=== PATIENT | male | born 1950 ===

== ENCOUNTER 2018-01-23 19:04 | Inpatient (IN) | payer MEDICARE ==
[2018-01-23 19:18] VITALS: BMI 23.6
--- NOTE | 2018-01-23 19:46 | C.PDOC ---
History Of Present Illness Patient presents to the ER with a complaint of SOB and cough worsening over the last week. Patient is currently speaking in 4-5 word sentences. He still smokes a pack a day. Denies fever, chills, or chest pain. Time Seen by Provider: 01/23/18 19:33 Chief Complaint (Nursing): Shortness Of Breath History Per: Patient History/Exam Limitations: no limitations Onset/Duration Of Symptoms: Days (7) Current Symptoms Are (Timing): Worse Initiating Event: Other (Not known) Exacerbating Factor(s): Coughing Current Respiratory Medications: See Home Med List Severity: Moderate Pain Scale Rating Of: 4 Associated Symptoms: denies: Fever, Chills, Chest Pain Recent travel outside of the [place]: No Additional History Per: Family Past Medical History Reviewed: Historical Data, Nursing Documentation, Vital Signs Vital Signs: Last Vital Signs Temp 99.3 F 01/23/18 19:18 Pulse 125 H 01/23/18 19:18 Resp 26 H 01/23/18 19:20 BP 119/82 01/23/18 19:18 Pulse Ox 93 L 01/23/18 19:20 - Medical History PMH: Asthma Family History: States: No Known Family Hx - Social History Hx Alcohol Use: No Hx Substance Use: No - Immunization History Hx Tetanus Toxoid Vaccination: No Hx Influenza Vaccination: No Hx Pneumococcal Vaccination: No Review Of Systems Constitutional: Negative for: Fever, Chills Eyes: Negative for: Vision Change ENT: Negative for: Throat Pain Cardiovascular: Negative for: Chest Pain, Palpitations Respiratory: Positive for: Cough, Shortness of Breath Gastrointestinal: Negative for: Nausea, Vomiting Genitourinary: Negative for: Dysuria Musculoskeletal: Negative for: Back Pain Skin: Negative for: Rash Neurological: Negative for: Weakness, Numbness Psych: Negative for: Anxiety Physical Exam - Physical Exam Appears: Non-toxic Skin: Warm, Dry Head: Normacephalic Eye(s): bilateral: Normal Inspection Oral Mucosa: Moist Teeth: Other (Very poor dentition) Neck: Trachea Midline, Supple Chest: Symmetrical, No Tenderness Cardiovascular: Rhythm Regular Respiratory: No Rales, Rhonchi (Scattered), Wheezing (Few) Gastrointestinal/Abdominal: Soft, No Tenderness Back: Normal Inspection Extremity: Pedal Edema (Trace) Extremity: Bilateral: Atraumatic, Normal Color And Temperature, Normal ROM Pulses: Left Dorsalis Pedis: Normal, Right Dorsalis Pedis: Normal Neurological/Psych: Oriented x3 Gait: Steady ED Course And Treatment - Laboratory Results Result Diagrams: 01/23/18 20:06 01/23/18 20:06 ECG: Interpreted By Me, Viewed By Me ECG Rhythm: Sinus Tachycardia (119), Nonspecific Changes O2 Sat by Pulse Oximetry: 93 (Room air) Pulse Ox Interpretation: Abnormal - Radiology CXR: Interpreted by Me, Viewed By Me Progress Note: Blood work, urinalysis, and CXR ordered. Duoneb nebulizer administered. Critical Care Time - Critical Care Note Total Time (in mins): 30 Documented critical care: time excludes all time spent performing seperately billable procedures. Disposition Discussed With DrJorgito: Gavin Samuels Comment: accepted the pt on his service and took over the care at 11:37 PM Doctor Will See Patient In The: Hospital Counseled Patient/Family Regarding: Studies Performed, Diagnosis, Smoking Cessation - Disposition Disposition: HOSPITALIZED Disposition Time: 19:46 Condition: GUARDED Forms: [employer] ([place]enegrin) - POA Present On Arrival: Poor Glycemic Control - Clinical Impression Clinical Impression: Dyspnea, Lung cancer - Scribe Statement The provider has reviewed the documentation as recorded by the Scribe Lewis Cardenas All medical record entries made by the Scribe were at my direction and p ersonally dictated by me. I have reviewed the chart and agree that the record accurately reflects my personal performance of the history, physical exam, medical decision making, and the department course for this patient. I have also personally directed, reviewed, and agree with the discharge instructions and disposition. Decision To Admit - Pt Status Changed To: Hospital Disposition Of: Inpatient - Admit Certification Admit to Inpatient:: After my assessment, the patient will require hospitalization for at least two midnights. This is because of the severity of symptoms shown, intensity of services needed, and/or the medical risk in this patient being treated as an outpatient. - InPatient: Physician Admission Certification: I certify that this patient requires 2 or more midnights of care for the following reason:: After my assessment, the patient will require hospitalization for at least two midnights. This is because of the severity of symptoms shown, intensity of services needed, and/or the medical risk in this patient being treated as an outpatient. - . Bed Request Type: Regular Admitting Physician: Gavin Samuels Patient Diagnosis: Dyspnea, Lung cancer
[2018-01-23 20:15] LABS: BASO % 0.4 % (0.0-2.0); EOS # 0.1 K/uL (0.0-0.7); EOS % 0.7 % (0.0-4.0); HEMOGLOBIN 11.5 g/dL (12.0-18.0); LYMPH # 0.9 K/uL (1.0-4.3); MEAN CELL VOLUME 80.6 fL (80.0-94.0); MEAN CORPUSCULAR HEMOGLOBIN 25.8 pg (27.0-31.0); MEAN CORPUSCULAR HGB CONC 32.1 g/dL (33.0-37.0); MEAN PLATELET VOLUME 7.1 fL (7.2-11.7); MONO # 0.7 K/uL (0.0-0.8); MONO % 6.4 % (0.0-10.0); NEUT # 9.5 K/uL (1.8-7.0); NEUT % 84.5 % (50.0-75.0); PLATELET COUNT 330 K/uL (130-400); RBC 4.45 Mil/uL (4.40-5.90); RED CELL DISTRIBUTION WIDTH 15.3 % (11.5-14.5); WHITE BLOOD COUNT 11.3 K/uL (4.8-10.8)
[2018-01-23 20:23] LABS: INR 1.3; PROTHROMBIN TIME 14.2 SECONDS (9.7-12.2)
[2018-01-23 20:25] LABS: ALB/GLOB RATIO 0.8 (1.0-2.1); ALBUMIN 3.5 g/dL (3.5-5.0); ALT/SGPT 21 U/L (21-72); AST/SGOT 21 U/L (17-59); BLOOD UREA NITROGEN 15 mg/dL (9-20); CALCIUM 10.5 mg/dl (8.6-10.4); GFR NON-AFRICAN AMERICAN > 60
[2018-01-23 20:29] LABS: ARTERIAL BLOOD GAS O2 SAT 96.9 % (95-98); ARTERIAL BLOOD GAS PCO2 46 mm/Hg (35-45); ARTERIAL BLOOD GAS PH 7.43 (7.35-7.45); ARTERIAL BLOOD GAS PO2 86 mm/Hg (80-100); ARTERIAL BLOOD GAS TCO2 31.9 mmol/L (22-28)
[2018-01-23] MEDS: Albuterol-Ipratrop 3 mg / 0.5 (3 ml) UD IH SCH ×2 (20:30→21:45)
[2018-01-23] MEDS ORDERED: Albuterol-Ipratrop 3 mg / 0.5 (3 ml) UD ONE ×2 (20:31→21:07)
[2018-01-23 21:08] LABS: LYMPHOCYTE 5 % (20-40); MONOCYTE 2 % (0-10); NEUTROPHIL 93 % (50-75); TOTAL CELLS COUNTED 100
[2018-01-23 21:09] LABS: PLATELET ESTIMATE NORMAL (NORMAL)
[2018-01-23 21:11] LABS: ANISOCYTOSIS SLIGHT; HYPOCHROMIC SLIGHT
[2018-01-23 21:25] LABS: SQUAMOUS EPITHIAL < 1 /hpf (0-5); URINE BACTERIA RARE (<OCC); URINE BILIRUBIN NEGATIVE (NEGATIVE); URINE BLOOD NEGATIVE (NEGATIVE); URINE CLARITY Hazy (Clear); URINE COLOR Yellow (YELLOW); URINE GLUCOSE (UA) NORMAL (Normal); URINE LEUKOCYTE ESTERASE NEG Leu/uL (Negative); URINE PROTEIN NEGATIVE (NEGATIVE)
[2018-01-23] MEDS ORDERED: Oxycodone/Acetaminophen 5/325 mg Tab PO PRN (23:30)
[2018-01-24] MEDS: MethylPREDNISolone 40 mg Vial IV SCH ×4 (00:03→21:00)
[2018-01-24] MEDS: guaiFENesin 200 mg/10 ml Syrup UD PO PRN ×2 (01:30→05:53)
[2018-01-24 07:19] LABS: HEMOGLOBIN 11.3 g/dL (12.0-18.0); MEAN CELL VOLUME 82.4 fL (80.0-94.0); MEAN CORPUSCULAR HEMOGLOBIN 27.2 pg (27.0-31.0); MEAN PLATELET VOLUME 7.4 fL (7.2-11.7); RBC 4.17 Mil/uL (4.40-5.90); WHITE BLOOD COUNT 9.6 K/uL (4.8-10.8)
[2018-01-24 07:46] LABS: ALB/GLOB RATIO 0.8 (1.0-2.1); ALBUMIN 3.3 g/dL (3.5-5.0); ALT/SGPT 18 U/L (21-72); AST/SGOT 16 U/L (17-59); BLOOD UREA NITROGEN 14 mg/dL (9-20); CALCIUM 10.4 mg/dl (8.6-10.4); GFR NON-AFRICAN AMERICAN > 60
[2018-01-24] MEDS: Enoxaparin 40 mg Syringe SC SCH (11:00)
--- NOTE | 2018-01-24 11:48 | RAD ---
Date of service: 01/23/2018 PROCEDURE: CHEST RADIOGRAPH, 1 VIEW HISTORY: SOB COMPARISON: None available. FINDINGS: LUNGS: The lungs are well inflated. 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 PLEURA: No pneumothorax or pleural effusion. CARDIOVASCULAR: The heart is normal in size. No aortic atherosclerotic calcifications present. OSSEOUS STRUCTURES: Within normal limits for the patient's age. VISUALIZED UPPER ABDOMEN: Normal. OTHER FINDINGS: None. 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
[2018-01-24 14:20] LABS: ABG ALLEN TEST POS; ARTERIAL BLOOD GAS HEMOGLOBIN 11.5 g/dL (11.7-17.4); ARTERIAL BLOOD GAS O2 SAT 97.1 % (95-98); ARTERIAL BLOOD GAS PCO2 48 mm/Hg (35-45); ARTERIAL BLOOD GAS PH 7.43 (7.35-7.45); ARTERIAL BLOOD GAS PO2 75 mm/Hg (80-100); ARTERIAL BLOOD GAS TCO2 33.4 mmol/L (22-28)
[2018-01-24] MEDS ORDERED: Iodixanol 320 MG/ML 100 ML BOTTLE IV ONE (14:36)
--- NOTE | 2018-01-24 14:42 | CP.PCM.CON ---
History of Present Illness - History of Present Illness History of Present Illness: reason for consultation: shortness of breath 67-year-old male with long history off smoking presented to emergency room complaining off shortness of breath and cough for the last one week. CAT scan of the chest showed multiple heaton ball nodules/masses. Patient complaining of weight loss but denies nausea vomiting, denies diarrhea, denies any prostate problem. Patient in mild respiratory distress. Review of Systems - Review of Systems All systems: reviewed and no additional remarkable complaints except (shortness of breath and cough) Past Patient History - Past Social History Smoking Status: Heavy Smoker > 10 Cigarettes Daily - PULMONARY Hx Asthma: Yes - MUSCULOSKELETAL/RHEUMATOLOGICAL Hx Falls: No - PSYCHIATRIC Hx Substance Use: No - SURGICAL HISTORY Hx Surgeries: No - ANESTHESIA Hx Anesthesia: No Meds Allergies/Adverse Reactions: Allergies Allergy/AdvReac Type Severity Reaction Status Date / Time No Known Allergies Allergy Verified 01/23/18 19:16 - Medications Medications: Current Medications Albuterol/Ipratropium (Duoneb 3 Mg/0.5 Mg (3 Ml) Ud) 3 ml INH RQ6 SANIA Enoxaparin Sodium (Lovenox) 40 mg SC DAILY [facility] Last Admin: 01/24/18 11:00 Dose: 40 mg Guaifenesin (Robitussin) 200 mg PO Q4H PRN PRN Reason: Cough and congestion Last Admin: 01/24/18 05:53 Dose: 200 mg Ceftriaxone Sodium 1 gm/ (Sodium Chloride) 100 mls @ 100 mls/hr IVPB DAILY [facility]; Protocol Last Admin: 01/24/18 11:09 Dose: 100 mls/hr Influenza Virus Vaccine (Fluzone Quad [id number]) 60 mcg IM .ONCE ONE Stop: 01/26/18 14:01 Methylprednisolone (Solu-Medrol) 60 mg IV Q4 [facility] Oxycodone/Acetaminophen (Percocet 5/325 Mg Tab) 1 tab PO Q4H PRN PRN Reason: Pain, moderate (4-7) Stop: 01/26/18 23:31 Pneumococcal Polyvalent Vaccine (Pneumovax 23 Vaccine) 0.5 ml IM .ONCE ONE Stop: 01/25/18 15:01 Physical Exam - Head Exam Head Exam: ATRAUMATIC, NORMOCEPHALIC - ENT Exam ENT Exam: Mucous Membranes Moist - Neck Exam Additional comments: positive stridor - Respiratory Exam Respiratory Exam: Rhonchi, Wheezes - Cardiovascular Exam Cardiovascular Exam: REGULAR RHYTHM - GI/Abdominal Exam GI & Abdominal Exam: Normal Bowel Sounds, Soft - Extremities Exam Extremities exam: Positive for: normal inspection Results - Vital Signs Recent Vital Signs: Last Vital Signs Temp 98.6 F 01/24/18 07:00 Pulse 110 H 01/24/18 07:00 Resp 20 01/24/18 07:00 BP 107/73 01/24/18 07:00 Pulse Ox 97 01/24/18 07:00 - Labs Result Diagrams: 01/24/18 07:12 01/24/18 07:12 Labs: Laboratory Results - last 24 hr 01/23/18 01/23/18 01/23/18 20:06 20:06 20:06 WBC 11.3 H RBC 4.45 Hgb 11.5 L Hct 35.8 MCV 80.6 MCH 25.8 L MCHC 32.1 L RDW 15.3 H Plt Count 330 MPV 7.1 L Neut % (Auto) 84.5 H Lymph % (Auto) 8.0 L [place] % (Auto) 6.4 Eos % (Auto) 0.7 Baso % (Auto) 0.4 Neut # (Auto) 9.5 H Lymph # (Auto) 0.9 L [place] # (Auto) 0.7 Eos # (Auto) 0.1 Baso # (Auto) 0.0 Neutrophils % (Manual) 93 H Lymphocytes % (Manual) 5 L Monocytes % (Manual) 2 Platelet Estimate Normal Hypochromasia (manual) Slight Anisocytosis (manual) Slight PT 14.2 H INR 1.3 APTT 32 Puncture Site pCO2 pO2 HCO3 ABG pH ABG Total CO2 ABG O2 Saturation ABG Base Excess ABG Hemoglobin ABG Carboxyhemoglobin POC ABG HHb (Measured) ABG Methemoglobin Kei Test ABG Potassium A-a O2 Difference Respiratory Index Hgb O2 Saturation Glucose Lactate Liter Flow FiO2 Sodium 138 Potassium 4.6 Chloride 98 Carbon Dioxide 31 H Anion Gap 14 BUN 15 Creatinine 0.7 L Est GFR ( Amer) > 60 Est GFR (Non-Af Amer) > 60 Random Glucose 118 H Calcium 10.5 H Magnesium 2.4 H Total Bilirubin 0.4 AST 21 ALT 21 Alkaline Phosphatase 94 Troponin I < 0.0120 NT-Pro-B Natriuret Pep 89.0 Total Protein 7.7 Albumin 3.5 Globulin 4.2 H Albumin/Globulin Ratio 0.8 L Arterial Blood Potassium Urine Color Urine Clarity Urine pH Ur Specific [place] Urine Protein Urine Glucose (UA) Urine Ketones Urine Blood Urine Nitrate Urine Bilirubin Urine Urobilinogen Ur Leukocyte Esterase Urine WBC (Auto) Urine RBC (Auto) Ur Squamous Epith Cells Urine Bacteria 01/23/18 01/23/18 01/24/18 20:26 21:15 07:12 WBC 9.6 RBC 4.17 L Hgb 11.3 L Hct 34.4 L MCV 82.4 MCH 27.2 MCHC 33.0 RDW 15.0 H Plt Count 305 MPV 7.4 Neut % (Auto) Lymph % (Auto) [place] % (Auto) Eos % (Auto) Baso % (Auto) Neut # (Auto) Lymph # (Auto) [place] # (Auto) Eos # (Auto) Baso # (Auto) Neutrophils % (Manual) Lymphocytes % (Manual) Monocytes % (Manual) Platelet Estimate Hypochromasia (manual) Anisocytosis (manual) PT INR APTT Puncture Site Lb pCO2 46 H pO2 86 HCO3 29.0 H ABG pH 7.43 ABG Total CO2 31.9 H ABG O2 Saturation 96.9 ABG Base Excess 5.3 H ABG Hemoglobin ABG Carboxyhemoglobin POC ABG HHb (Measured) ABG Methemoglobin Kei Test Na ABG Potassium 3.7 A-a O2 Difference 85.0 Respiratory Index 1.0 Hgb O2 Saturation Glucose 122 H Lactate 0.9 Liter Flow 3.0 FiO2 32.0 Sodium 137.0 Potassium Chloride 108.0 H Carbon Dioxide Anion Gap BUN Creatinine Est GFR ( Amer) Est GFR (Non-Af Amer) Random Glucose Calcium Magnesium Total Bilirubin AST ALT Alkaline Phosphatase Troponin I NT-Pro-B Natriuret Pep Total Protein Albumin Globulin Albumin/Globulin Ratio Arterial Blood Potassium 3.7 Urine Color Yellow Urine Clarity Hazy Urine pH 5.0 Ur Specific [place] 1.018 Urine Protein Negative Urine Glucose (UA) Normal Urine Ketones Trace Urine Blood Negative Urine Nitrate Negative Urine Bilirubin Negative Urine Urobilinogen 4.0 Ur Leukocyte Esterase Neg Urine WBC (Auto) 1 Urine RBC (Auto) 2 Ur Squamous Epith Cells < 1 Urine Bacteria Rare 01/24/18 01/24/18 07:12 14:16 WBC RBC Hgb Hct MCV MCH MCHC RDW Plt Count MPV Neut % (Auto) Lymph % (Auto) [place] % (Auto) Eos % (Auto) Baso % (Auto) Neut # (Auto) Lymph # (Auto) [place] # (Auto) Eos # (Auto) Baso # (Auto) Neutrophils % (Manual) Lymphocytes % (Manual) Monocytes % (Manual) Platelet Estimate Hypochromasia (manual) Anisocytosis (manual) PT INR APTT Puncture Site Rra pCO2 48 H pO2 75 L HCO3 30.0 H ABG pH 7.43 ABG Total CO2 33.4 H ABG O2 Saturation 97.1 ABG Base Excess 6.6 H ABG Hemoglobin 11.5 L ABG Carboxyhemoglobin 1.9 H POC ABG HHb (Measured) 2.8 ABG Methemoglobin 0.7 Kei Test Pos ABG Potassium A-a O2 Difference 65.0 Respiratory Index 0.9 Hgb O2 Saturation 94.7 L Glucose Lactate Liter Flow 2.0 FiO2 28.0 Sodium 136 Potassium 5.3 H Chloride 96 L Carbon Dioxide 34 H Anion Gap 12 BUN 14 Creatinine 0.7 L Est GFR ( Amer) > 60 Est GFR (Non-Af Amer) > 60 Random Glucose 166 H Calcium 10.4 Magnesium 2.4 H Total Bilirubin 0.5 AST 16 L D ALT 18 L Alkaline Phosphatase 70 Troponin I NT-Pro-B Natriuret Pep Total Protein 7.5 Albumin 3.3 L Globulin 4.2 H Albumin/Globulin Ratio 0.8 L Arterial Blood Potassium Urine Color Urine Clarity Urine pH Ur Specific [place] Urine Protein Urine Glucose (UA) Urine Ketones Urine Blood Urine Nitrate Urine Bilirubin Urine Urobilinogen Ur Leukocyte Esterase Urine WBC (Auto) Urine RBC (Auto) Ur Squamous Epith Cells Urine Bacteria Assessment & Plan (1) Dyspnea Status: Acute Comment: shortness of breath with stridor, rule out upper airway obst ruction/narrowing. CAT scan of the neck. Continue nebulizer treatment. Malignancy workup. ENT evaluation (2) Multiple lung nodules on CT Status: Acute Comment: cannonball lesions. Biopsy. CAT scan of the neck. BiPAP
[2018-01-24] MEDS ORDERED: Iodixanol 320 mg/ml 150 ml Bottle IV ONE (15:29)
--- NOTE | 2018-01-24 16:28 | CT ---
Date of service: 01/24/2018 PROCEDURE: CT NECK WITH CONTRAST HISTORY: R/O NECK MASS COMPARISON: None available. TECHNIQUE: CT of the neck with intravenous contrast. Coronal and sagittal reformats generated. Intravenous contrast dose: 100 mL Visipaque 320 Radiation dose: Total exam DLP = 466.58 mGy-cm. This CT exam was performed using one or more of the following dose reduction techniques: Automated exposure control, adjustment of the mA and/or kV according to patient size, and/or use of iterative reconstruction technique. FINDINGS: NASOPHARYNX: No mass or abnormal enhancement. SUPRAHYOID NECK: No mass or abnormal enhancement in the oropharynx, oral cavity, parapharyngeal space and retropharyngeal space. INFRAHYOID NECK: No mass or abnormal enhancement in the larynx, hypopharynx, and supraglottic space. Vocal cords intact. MASS: No enhancing neck mass. GLANDS: Parotid and submandibular glands unremarkable. Normal size thyroid gland, without nodule. LYMPH NODES: Normal. No lymphadenopathy. CERVICAL SPINE: No fracture or focal lesion. VASCULAR STRUCTURES: Unremarkable. OTHER FINDINGS: Multiple cannonball metastasis in the visualized lungs, the largest confluent metastatic mass in the right upper lobe. IMPRESSION: No enhancing mass or bulky lymphadenopathy. Multiple cannonball metastasis in the visualized lungs, the largest confluent metastatic mass in the right upper lobe.
--- NOTE | 2018-01-24 18:16 | CP.PCM.CON ---
History of Present Illness - History of Present Illness History of Present Illness: ASKED TO SEE PT BY DR PAZ FOR DYSPNEA PT PRESENTS WITH INCREASING DYSPNEA FOR SEVERAL WEEKS. PT DENIES CAD OR HX OF HEART DISEASE. DENIES F/C/N/V. ADMITS TO COUGH, [place]. DENIES MARY, ORTHOPNEA, PND. PT HYPOXIC ON ADMISSION. CXR AND CT SCAN RESULTS NOTED. ETIOLOGY OF LUNG LESIONS UNKNOWN OF YET. Review of Systems - Constitutional Constitutional: As Per HPI, Weight Loss, Weakness. absent: Anorexia, Chills, Daytime Sleepiness, Excessive Sweating, Fatigue, Fever, Frequent Falls, Headache, Increased Appetite, Lethargy, Malaise, Night Sweats, Snoring, Sleep Apnea, Weight Gain, Other - EENT Eyes: As Per HPI. absent: Blind Spots, Blurred Vision, Change in Vision, Decreased Night Vision, Diplopia, Discharge, Dry Eye, Exophthalmos, Floaters, Irritation, Itchy Eyes, Loss of Peripheral Vision, Pain, Photophobia, Requires Corrective Lenses, Sees Flashes, Spots in Vision, Tunnel Vision, Other Visual Disturbances, Loss of Vision, Other Ears: As Per HPI. absent: Decreased Hearing, Ear Discharge, Ear Pain, Tinnitus, Abnormal Hearing, Disequilibrium, Dizziness, Other Nose/Mouth/Throat: As Per HPI. absent: Epistaxis, Nasal Congestion, Nasal Discharge, Nasal Obstruction, Nasal Trauma, Nose Pain, Post Nasal Drip, Sinus Pain, Sinus Pressure, Bleeding Gums, Change in Voice, Dental Pain, Dry Mouth, Dysphagia, Halitosis, Hoarsness, Lip Swelling, Mouth Lesions, Mouth Pain, Odynophagia, Sore Throat, Throat Swelling, Tongue Swelling, Facial Pain, Neck Pain, Neck Mass, Other - Cardiovascular Cardiovascular: As Per HPI, Dyspnea, Dyspnea on Exertion. absent: Acrocyanosis, Chest Pain, Chest Pain at Rest, Chest Pain with Activity, Claudication, Diaphoresis, Edema, Irregular Heart Rhythm, Pain Radiating to Arm/Neck/Jaw, Leg Edema, Leg Ulcers, Lightheadedness, Orthopnea, Palpitations, Paroxysmal Nocturnal Dyspnea, Pedal Edema, Radiating Pain, Rapid Heart Rate, Slow Heart Rate, Syncope, Other - Respiratory Respiratory: As Per HPI, Cough, Dyspnea, Wheezing. absent: Hemoptysis, Dyspnea on Exertion, Snoring, Stridor, Pain on Inspiration, Chest Congestion, Excessive Mucous Production, Change in Mucous Color, Pain with Coughing, Other - Gastrointestinal Gastrointestinal: As Per HPI. absent: Abdominal Pain, Belching, Bloating, Change in Bowel Habits, Change in Stool Character, Coffee Ground Emesis, Constipation, Cramping, Diarrhea, Dyspepsia, Dysphagia, Early Satiety, Excessive Flatus, Fecal Incontinence, Heartburn, Hematemesis, Hematochezia, Loose Stools, Melena, Nausea, Odynophagia, Temesmus, Vomiting, Other - Genitourinary Genitourinary: As Per HPI. absent: Change in Urinary Stream, Difficulty Urinating, Dysuria, Flank Pain, Hematuria, Pyuria, Nocturia, Urinary Incontinence, Urinary Frequency, Urinary Hesitance, Urinary Urgency, Voiding Freq/Small Amts, Freq UTI, Hx Renal/Bladder Calculi, Hx /Renal Surgery, Bladder Distension, Other - Reproductive: Male Reproductive:Male: As Per HPI - Musculoskeletal Musculoskeletal: As Per HPI. absent: Abnormal Gait, Arthralgias, Atrophy, Back Pain, Deformity, Joint Swelling, Limited Range of Motion, Loss of Height, Muscle Cramps, Muscle Weakness, Myalgias, Neck Pain, Numbness, Radiating Pain into Limb, Stiffness, Tingling, Other - Integumentary Integumentary: As Per HPI. absent: Acne, Alopecia, Bleeding Lesions, Change in Hair, Change in Nails, Change in Pigmentation, Changing Lesions, Dry Skin, Erythema, Furuncle, Hirsutism, Lesions, New Lesions, Non-Healing Lesions, Photosensitivity, Pruritus, Rash, Skin Pain, Skin Ulcer, Sores, Striae, Swelling, Unusual Bruising, Wounds, Jaundice, Other - Neurological Neurological: As Per HPI. absent: Abnormal Gait, Abnormal Hearing, Abnormal Movements, Abnormal Speech, Behavioral Changes, Burning Sensations, Confusion, Convulsions, Disequilibrium, Dizziness, Numbness, Focal Weakness, Frequent Falls, Headaches, Lack of Coordination, Loss of Vision, Memory Loss, Paresthesias, Radicular Pain, Restless Legs, Sensory Deficit, Syncope, Tingling, Tremor, Vertigo, Weakness, Other Visual Disturbances, Other - Psychiatric Psychiatric: As Per HPI. absent: Abnormal Sleep Pattern, Anhedonia, Anxiety, Auditory Hallucinations, Behavioral Changes, Change in Appetite, Change in Libido, Confusion, Depression, Difficulty Concentrating, Hallucinations, Homicidal Ideation, Hopelessness, Irritability, Memory Loss, Mood Swings, Panic Attacks, Paranoia, Suicidal Ideation, Visual Hallucinations, Tactile Nixon llucinations, Other - Endocrine Endocrine: As Per HPI. absent: Change in Body Appearance, Change in Libido, Cold Intolorance, Deepening of Voice, Excessive Sweating, Fatigue, Flushing, Heat Intolorance, Increase in Ring/Shoe/Hat Size, Palpitations, Polydipsia, Polyphagia, Polyuria, Other - Hematologic/Lymphatic Hematologic: As Per HPI. absent: Easy Bleeding, Easy Bruising, Lymphadenopathy, Other Past Patient History - Past Medical History & Family History Past Medical History?: No Past Family History: Reviewed and not pertinent - Past Social History Smoking Status: Heavy Smoker > 10 Cigarettes Daily Chewing Tobacco Use: No Cigar Use: No Alcohol: None Drugs: Denies Home Situation {Lives}: With Family Domestic Violence: Negative - CARDIAC Hx Cardiac Disorders: No - PULMONARY Hx Asthma: Yes - NEUROLOGICAL Hx Neurological Disorder: No - HEENT Hx HEENT Problems: No - RENAL Hx Chronic Kidney Disease: No - ENDOCRINE/METABOLIC Hx Endocrine Disorders: No - HEMATOLOGICAL/ONCOLOGICAL Hx Blood Disorders: No - INTEGUMENTARY Hx Dermatological Problems: No - MUSCULOSKELETAL/RHEUMATOLOGICAL Hx Musculoskeletal Disorders: No Hx Falls: No - GASTROINTESTINAL Hx Gastrointestinal Disorders: No - GENITOURINARY/GYNECOLOGICAL Hx Genitourinary Disorders: No - PSYCHIATRIC Hx Psychophysiologic Disorder: No Hx Substance Use: No - SURGICAL HISTORY Hx Surgeries: No - ANESTHESIA Hx Anesthesia: No Meds Allergies/Adverse Reactions: Allergies Allergy/AdvReac Type Severity Reaction Status Date / Time No Known Allergies Allergy Verified 01/23/18 19:16 - Medications Medications: Current Medications Albuterol/Ipratropium (Duoneb 3 Mg/0.5 Mg (3 Ml) Ud) 3 ml INH RQ6 SANIA Enoxaparin Sodium (Lovenox) 40 mg SC DAILY SANIA Last Admin: 01/24/18 11:00 Dose: 40 mg Guaifenesin (Robitussin) 200 mg PO Q4H PRN PRN Reason: Cough and congestion Last Admin: 01/24/18 05:53 Dose: 200 mg Ceftriaxone Sodium 1 gm/ (Sodium Chloride) 100 mls @ 100 mls/hr IVPB DAILY SANIA; Protocol Last Admin: 01/24/18 11:09 Dose: 100 mls/hr Influenza Virus Vaccine (Fluzone Quad [id number]) 60 mcg IM .ONCE ONE Stop: 01/26/18 14:01 Methylprednisolone (Solu-Medrol) 60 mg IV Q4 SANIA Last Admin: 01/24/18 17:05 Dose: 60 mg Oxycodone/Acetaminophen (Percocet 5/325 Mg Tab) 1 tab PO Q4H PRN PRN Reason: Pain, moderate (4-7) Stop: 01/26/18 23:31 Pneumococcal Polyvalent Vaccine (Pneumovax 23 Vaccine) 0.5 ml IM .ONCE ONE Stop: 01/25/18 15:01 Physical Exam - Constitutional Appears: No Acute Distress - Head Exam Head Exam: ATRAUMATIC, NORMAL INSPECTION, NORMOCEPHALIC - Eye Exam Eye Exam: EOMI, Normal appearance, PERRL. absent: Conjunctival injection, Nystagmus, Periorbital swelling, Periorbital tenderness, Scleral icterus Pupil Exam: NORMAL ACCOMODATION, PERRL. absent: Fixed, Irregular, Miosis, Mydriatic, Unequal - ENT Exam ENT Exam: Mucous Membranes Moist, Normal Exam. absent: Mucous Membranes Dry, Normal External Ear Exam, Normal Oropharynx, TM's Normal Bilaterally - Neck Exam Neck exam: Positive for: Normal Inspection. Negative for: Full Rom, Lymphadenopathy, Meningismus, Tenderness, Thyromegaly - Respiratory Exam Respiratory Exam: Prolonged Expiratory Phase, Rhonchi, Wheezes. absent: Accessory Muscle Use, Chest Wall Tenderness, Decreased Breath Sounds, Clear to Auscultation Bilateral, Rales, Respiratory Distress, Stridor, NORMAL BREATHING PATTERN Additional comments: DECREASED BS ON LEFT DIFFUSELY. INSP AND EXP WHEEZING NOTED THROUGHOUT R LUNG. - Cardiovascular Exam Cardiovascular Exam: Tachycardia, +S1, +S2, Systolic Murmur. absent: Bradycardia, Clicks, Diastolic murmur, Gallop, Irregular Rhythm, REGULAR RHYTHM, JVD, RRR, Rubs, +S4 - GI/Abdominal Exam GI & Abdominal Exam: Normal Bowel Sounds, Soft. absent: Bruit, Diminished Bowel Sounds, Distended, Firm, Guarding, Hernia, Hyperactive Bowel Sounds, Hypoactive Bowel Sounds, Mass, Organomegaly, Pulsatile Mass, Rebound, Rigid, Tenderness - Rectal Exam Rectal Exam: Deferred - Extremities Exam Extremities exam: Positive for: normal inspection. Negative for: calf tenderness, full ROM, joint swelling, normal capillary refill, pedal edema, tenderness, pedal pulses present - Back Exam Back exam: NORMAL INSPECTION. absent: CVA tenderness (L), CVA tenderness (R), FULL ROM, muscle spasm, paraspinal tenderness, rash noted, tenderness, vertebral tenderness - Neurological Exam Neurological exam: Alert, CN II-XII Intact, Normal Gait, Oriented x3, Reflexes Normal - Psychiatric Exam Psychiatric exam: Normal Affect, Normal Mood - Skin Skin Exam: Dry, Intact, Normal Color, Warm Results - Vital Signs Recent Vital Signs: Last Vital Signs Temp 98.4 F 01/24/18 18:00 Pulse 110 H 01/24/18 18:00 Resp 20 01/24/18 18:00 BP 109/76 01/24/18 18:00 Pulse Ox 91 L 01/24/18 18:00 - Labs Result Diagrams: 01/24/18 07:12 01/24/18 07:12 Labs: Laboratory Results - last 24 hr 01/23/18 01/23/18 01/23/18 20:06 20:06 20:06 WBC 11.3 H RBC 4.45 Hgb 11.5 L Hct 35.8 MCV 80.6 MCH 25.8 L MCHC 32.1 L RDW 15.3 H Plt Count 330 MPV 7.1 L Neut % (Auto) 84.5 H Lymph % (Auto) 8.0 L [place] % (Auto) 6.4 Eos % (Auto) 0.7 Baso % (Auto) 0.4 Neut # (Auto) 9.5 H Lymph # (Auto) 0.9 L [place] # (Auto) 0.7 Eos # (Auto) 0.1 Baso # (Auto) 0.0 Neutrophils % (Manual) 93 H Lymphocytes % (Manual) 5 L Monocytes % (Manual) 2 Platelet Estimate Normal Hypochromasia (manual) Slight Anisocytosis (manual) Slight PT 14.2 H INR 1.3 APTT 32 Puncture Site pCO2 pO2 HCO3 ABG pH ABG Total CO2 ABG O2 Saturation ABG Base Excess ABG Hemoglobin ABG Carboxyhemoglobin POC ABG HHb (Measured) ABG Methemoglobin Kei Test ABG Potassium A-a O2 Difference Respiratory Index Hgb O2 Saturation Glucose Lactate Liter Flow FiO2 Sodium 138 Potassium 4.6 Chloride 98 Carbon Dioxide 31 H Anion Gap 14 BUN 15 Creatinine 0.7 L Est GFR ( Amer) > 60 Est GFR (Non-Af Amer) > 60 Random Glucose 118 H Calcium 10.5 H Magnesium 2.4 H Total Bilirubin 0.4 AST 21 ALT 21 Alkaline Phosphatase 94 Troponin I < 0.0120 NT-Pro-B Natriuret Pep 89.0 Total Protein 7.7 Albumin 3.5 Globulin 4.2 H Albumin/Globulin Ratio 0.8 L Arterial Blood Potassium Urine Color Urine Clarity Urine pH Ur Specific [place] Urine Protein Urine Glucose (UA) Urine Ketones Urine Blood Urine Nitrate Urine Bilirubin Urine Urobilinogen Ur Leukocyte Esterase Urine WBC (Auto) Urine RBC (Auto) Ur Squamous Epith Cells Urine Bacteria 01/23/18 01/23/18 01/24/18 20:26 21:15 07:12 WBC 9.6 RBC 4.17 L Hgb 11.3 L Hct 34.4 L MCV 82.4 MCH 27.2 MCHC 33.0 RDW 15.0 H Plt Count 305 MPV 7.4 Neut % (Auto) Lymph % (Auto) [place] % (Auto) Eos % (Auto) Baso % (Auto) Neut # (Auto) Lymph # (Auto) [place] # (Auto) Eos # (Auto) Baso # (Auto) Neutrophils % (Manual) Lymphocytes % (Manual) Monocytes % (Manual) Platelet Estimate Hypochromasia (manual) Anisocytosis (manual) PT INR APTT Puncture Site Lb pCO2 46 H pO2 86 HCO3 29.0 H ABG pH 7.43 ABG Total CO2 31.9 H ABG O2 Saturation 96.9 ABG Base Excess 5.3 H ABG Hemoglobin ABG Carboxyhemoglobin POC ABG HHb (Measured) ABG Methemoglobin Kei Test Na ABG Potassium 3.7 A-a O2 Difference 85.0 Respiratory Index 1.0 Hgb O2 Saturation Glucose 122 H Lactate 0.9 Liter Flow 3.0 FiO2 32.0 Sodium 137.0 Potassium Chloride 108.0 H Carbon Dioxide Anion Gap BUN Creatinine Est GFR ( Amer) Est GFR (Non-Af Amer) Random Glucose Calcium Magnesium Total Bilirubin AST ALT Alkaline Phosphatase Troponin I NT-Pro-B Natriuret Pep Total Protein Albumin Globulin Albumin/Globulin Ratio Arterial Blood Potassium 3.7 Urine Color Yellow Urine Clarity Hazy Urine pH 5.0 Ur Specific [place] 1.018 Urine Protein Negative Urine Glucose (UA) Normal Urine Ketones Trace Urine Blood Negative Urine Nitrate Negative Urine Bilirubin Negative Urine Urobilinogen 4.0 Ur Leukocyte Esterase Neg Urine WBC (Auto) 1 Urine RBC (Auto) 2 Ur Squamous Epith Cells < 1 Urine Bacteria Rare 01/24/18 01/24/18 07:12 14:16 WBC RBC Hgb Hct MCV MCH MCHC RDW Plt Count MPV Neut % (Auto) Lymph % (Auto) [place] % (Auto) Eos % (Auto) Baso % (Auto) Neut # (Auto) Lymph # (Auto) [place] # (Auto) Eos # (Auto) Baso # (Auto) Neutrophils % (Manual) Lymphocytes % (Manual) Monocytes % (Manual) Platelet Estimate Hypochromasia (manual) Anisocytosis (manual) PT INR APTT Puncture Site Rra pCO2 48 H pO2 75 L HCO3 30.0 H ABG pH 7.43 ABG Total CO2 33.4 H ABG O2 Saturation 97.1 ABG Base Excess 6.6 H ABG Hemoglobin 11.5 L ABG Carboxyhemoglobin 1.9 H POC ABG HHb (Measured) 2.8 ABG Methemoglobin 0.7 Kei Test Pos ABG Potassium A-a O2 Difference 65.0 Respiratory Index 0.9 Hgb O2 Saturation 94.7 L Glucose Lactate Liter Flow 2.0 FiO2 28.0 Sodium 136 Potassium 5.3 H Chloride 96 L Carbon Dioxide 34 H Anion Gap 12 BUN 14 Creatinine 0.7 L Est GFR ( Amer) > 60 Est GFR (Non-Af Amer) > 60 Random Glucose 166 H Calcium 10.4 Magnesium 2.4 H Total Bilirubin 0.5 AST 16 L D ALT 18 L Alkaline Phosphatase 70 Troponin I NT-Pro-B Natriuret Pep Total Protein 7.5 Albumin 3.3 L Globulin 4.2 H Albumin/Globulin Ratio 0.8 L Arterial Blood Potassium Urine Color Urine Clarity Urine pH Ur Specific [place] Urine Protein Urine Glucose (UA) Urine Ketones Urine Blood Urine Nitrate Urine Bilirubin Urine Urobilinogen Ur Leukocyte Esterase Urine WBC (Auto) Urine RBC (Auto) Ur Squamous Epith Cells Urine Bacteria - EKG Data EKG Interpreted by: Myself EKG shows normal: Sinus rhythm - EKG Data EKG comments: DIFFUSE LOW VOLTAGE Assessment & Plan (1) Lung mass Status: Acute (2) Abnormal EKG Status: Acute (3) Sinus tachycardia Status: Acute (4) Dyspnea Status: Acute - Assessment and Plan (Free Text) Plan: SINUS TACH LIKELY FROM DYSPNEA, AND NEBS. EKG SHOWS LOW VOLTAGE, WILL CHECK ECHO TO EVAL FOR PERICARD EFFUSION. TELE MONITOR. 45 MIN TOTAL CARE TIME.
--- NOTE | 2018-01-24 22:50 | CP.PCM.HP ---
Past Patient History - Past Social History Smoking Status: Heavy Smoker > 10 Cigarettes Daily - PULMONARY Hx Asthma: Yes - MUSCULOSKELETAL/RHEUMATOLOGICAL Hx Falls: No - PSYCHIATRIC Hx Substance Use: No - SURGICAL HISTORY Hx Surgeries: No - ANESTHESIA Hx Anesthesia: No Meds Allergies/Adverse Reactions: Allergies Allergy/AdvReac Type Severity Reaction Status Date / Time No Known Allergies Allergy Verified 01/23/18 19:16 Results - Vital Signs Recent Vital Signs: Last Vital Signs Temp 98.4 F 01/24/18 18:00 Pulse 110 H 01/24/18 18:00 Resp 20 01/24/18 18:00 BP 109/76 01/24/18 18:00 Pulse Ox 91 L 01/24/18 18:00 - Labs Result Diagrams: 01/24/18 07:12 01/24/18 07:12 Labs: Laboratory Results - last 24 hr 01/24/18 01/24/18 01/24/18 07:12 07:12 14:16 WBC 9.6 RBC 4.17 L Hgb 11.3 L Hct 34.4 L MCV 82.4 MCH 27.2 MCHC 33.0 RDW 15.0 H Plt Count 305 MPV 7.4 Puncture Site Rra pCO2 48 H pO2 75 L HCO3 30.0 H ABG pH 7.43 ABG Total CO2 33.4 H ABG O2 Saturation 97.1 ABG Base Excess 6.6 H ABG Hemoglobin 11.5 L ABG Carboxyhemoglobin 1.9 H POC ABG HHb (Measured) 2.8 ABG Methemoglobin 0.7 Kei Test Pos A-a O2 Difference 65.0 Respiratory Index 0.9 Hgb O2 Saturation 94.7 L Liter Flow 2.0 FiO2 28.0 Sodium 136 Potassium 5.3 H Chloride 96 L Carbon Dioxide 34 H Anion Gap 12 BUN 14 Creatinine 0.7 L Est GFR ( Amer) > 60 Est GFR (Non-Af Amer) > 60 Random Glucose 166 H Calcium 10.4 Magnesium 2.4 H Total Bilirubin 0.5 AST 16 L D ALT 18 L Alkaline Phosphatase 70 Total Protein 7.5 Albumin 3.3 L Globulin 4.2 H Albumin/Globulin Ratio 0.8 L
[2018-01-25] MEDS: MethylPREDNISolone 40 mg Vial IV SCH ×5 (00:17→22:18)
[2018-01-25] MEDS: Albuterol-Ipratrop 3 mg / 0.5 (3 ml) UD INH SCH ×2 (02:02→19:23)
--- NOTE | 2018-01-25 08:53 | HP ---
CHIEF COMPLAINT: Shortness of breath. HISTORY OF PRESENT ILLNESS: This is a 67-year-old male with no significant past medical history. He has history of prior smoking. He smokes about half pack per day. He came to emergency room because of cough, congestion, shortness of breathing for one week. According to the patient, he is coughing. He is wheezing. He denies any hemoptysis. He had substantial weight loss, unquantified. He . He denies any pleuritic chest pain. He denies any nausea or vomiting. He denies any polyuria, polydipsia, or polyphagia. He denies any hematuria or pyuria. There is cough with white sputum production. There is no abdominal pain. There is no history of trauma, fall, or loss of consciousness. No history of seizure-like activity. He denies any tingling, numbness, paresthesias of the body. SOCIAL HISTORY: He smokes 1 pack per day and social [employer] user. CURRENT MEDICATIONS: None. PAST MEDICAL HISTORY: Nothing significant. FAMILY HISTORY: Noncontributory. PHYSICAL EXAMINATION: GENERAL: An elderly male in moderate respiratory distress. VITAL SIGNS: Blood pressure 107/73, pulse 110, respiratory rate 20, and temperature 98.6. SKIN: Senile turgor. No bruises. No purpura. No petechiae. No ecchymosis. HEENT: Atraumatic, normocephalic. Negative pallor. Negative jaundice. Extraocular movements are intact. NECK: Supple. No JVD. No lymph node. No thyromegaly. No carotid bruit. CHEST: Chest wall, bilateral symmetrical expansion. No tenderness. LUNGS: Bilateral expiratory and inspiratory rhonchi. Decreased air entry. CARDIOVASCULAR SYSTEM: S1 and S2 regular. No heave. No thrill. ABDOMEN: Nontender. Bowel sounds are positive. ASSESSMENT: 1. Chronic obstructive pulmonary disease, new onset and it is acute. 2. Lung masses. Rule out lung cancer. 3. Smoking. PLAN: Admit. Detailed orders written. Seen and examined. Gavin Samuels MD
[2018-01-25] MEDS: Enoxaparin 40 mg Syringe SC SCH (10:09)
--- NOTE | 2018-01-25 14:25 | CP.PCM.PN ---
Subjective - Date & Time of Evaluation Date of Evaluation: 01/25/18 Time of Evaluation: 14:23 - Subjective Subjective: Pulmonary Follow up, Covering Dr Cm The patient was Seen/interviewed and examined by me at the bedside, Medical records reviewed and Management issues were discussed and formulated with the house staff. Events reviewed Patient comfortable, NAD Afebrile Adequate saturation 96-99% on 2L nasal cannula No chest pain, Less Dyspnea Objective - Vital Signs/Intake and Output Vital Signs (last 24 hours): Temp Pulse Resp BP Pulse Ox 97.8 F 90 20 111/80 97 01/25/18 07:00 01/25/18 10:50 01/25/18 07:00 01/25/18 07:00 01/25/18 10:50 Intake and Output: 01/25/18 01/25/18 06:59 18:59 Intake Total 120 Output Total 400 Balance -280 - Medications Medications: Current Medications Albuterol/Ipratropium (Duoneb 3 Mg/0.5 Mg (3 Ml) Ud) 3 ml INH RQ6 SANIA Last Admin: 01/25/18 02:02 Dose: Not Given Enoxaparin Sodium (Lovenox) 40 mg SC DAILY SANIA Last Admin: 01/25/18 10:09 Dose: 40 mg Guaifenesin (Robitussin) 200 mg PO Q4H PRN PRN Reason: Cough and congestion Last Admin: 01/24/18 05:53 Dose: 200 mg Ceftriaxone Sodium 1 gm/ (Sodium Chloride) 100 mls @ 100 mls/hr IVPB DAILY SANIA; Protocol Last Admin: 01/25/18 10:08 Dose: 100 mls/hr Influenza Virus Vaccine (Fluzone Quad [id number]) 60 mcg IM .ONCE ONE Stop: 01/26/18 14:01 Methylprednisolone (Solu-Medrol) 60 mg IV Q4 SANIA Last Admin: 01/25/18 12:27 Dose: 60 mg Oxycodone/Acetaminophen (Percocet 5/325 Mg Tab) 1 tab PO Q4H PRN PRN Reason: Pain, moderate (4-7) Stop: 01/26/18 23:31 Pneumococcal Polyvalent Vaccine (Pneumovax 23 Vaccine) 0.5 ml IM .ONCE ONE Stop: 01/25/18 15:01 - Labs Labs: 01/24/18 07:12 01/24/18 07:12 PT 14.2 SECONDS (9.7-12.2) H 01/23/18 20:06 INR 1.3 01/23/18 20:06 APTT 32 SECONDS (21-34) 01/23/18 20:06
[2018-01-25] MEDS ORDERED: Pneumococcal 23-Valent Vaccine IM ONE (15:00)
[2018-01-25 17:50] LABS: BLOOD UREA NITROGEN 21 mg/dL (9-20); CALCIUM 9.6 mg/dl (8.6-10.4); GFR NON-AFRICAN AMERICAN > 60
--- NOTE | 2018-01-25 20:11 | CP.PCM.PN ---
Subjective - Subjective Subjective: dictated Objective - Vital Signs/Intake and Output Vital Signs (last 24 hours): Temp Pulse Resp BP Pulse Ox 98.3 F 102 H 20 147/86 92 L 01/25/18 18:40 01/25/18 18:40 01/25/18 07:00 01/25/18 18:40 01/25/18 18:40 - Medications Medications: Current Medications Albuterol/Ipratropium (Duoneb 3 Mg/0.5 Mg (3 Ml) Ud) 3 ml INH RQ6 SANIA Last Admin: 01/25/18 19:23 Dose: 3 ml Enoxaparin Sodium (Lovenox) 40 mg SC DAILY SANIA Last Admin: 01/25/18 10:09 Dose: 40 mg Guaifenesin (Robitussin) 200 mg PO Q4H PRN PRN Reason: Cough and congestion Last Admin: 01/24/18 05:53 Dose: 200 mg Ceftriaxone Sodium 1 gm/ (Sodium Chloride) 100 mls @ 100 mls/hr IVPB DAILY [facility]; Protocol Last Admin: 01/25/18 10:08 Dose: 100 mls/hr Influenza Virus Vaccine (Fluzone Quad [id number]) 60 mcg IM .ONCE ONE Stop: 01/26/18 14:01 Methylprednisolone (Solu-Medrol) 60 mg IV Q8 SAINA Oxycodone/Acetaminophen (Percocet 5/325 Mg Tab) 1 tab PO Q4H PRN PRN Reason: Pain, moderate (4-7) Stop: 01/26/18 23:31 - Labs Labs: 01/24/18 07:12 01/25/18 17:09 PT 14.2 SECONDS (9.7-12.2) H 01/23/18 20:06 INR 1.3 01/23/18 20:06 APTT 32 SECONDS (21-34) 01/23/18 20:06
[2018-01-26] MEDS: Albuterol-Ipratrop 3 mg / 0.5 (3 ml) UD INH SCH ×4 (01:29→20:08)
--- NOTE | 2018-01-26 03:09 | PN ---
DATE: 01/25/2018 SUBJECTIVE: The patient, Hernan Canales, is afebrile. Less cough. Less shortness of breath. Less wheezing. He will need tissue diagnosis. PHYSICAL EXAMINATION: VITAL SIGNS: Blood pressure 147/86, pulse 102, respiratory rate 20, temperature 98.3. LUNGS: Decreased air entry. Positive rhonchi. CVS: S1, S2 regular. ABDOMEN: Soft. ASSESSMENT: 1. Chronic obstructive pulmonary disease exacerbation. 2. Lung masses, could be primary lung tumor versus secondary. PLAN: Pulmonary followup. Monitor the patient. Gavin Samuels MD
[2018-01-26] MEDS: MethylPREDNISolone 40 mg Vial IV SCH ×3 (05:36→21:52)
[2018-01-26] MEDS: Enoxaparin 40 mg Syringe SC SCH (10:02)
[2018-01-26] MEDS: guaiFENesin 200 mg/10 ml Syrup UD PO PRN (10:08)
[2018-01-26] MEDS ORDERED: Influenza Vaccine 60 MCG/0.5 ML SYR (3 yr & up) IM ONE (14:00)
--- NOTE | 2018-01-26 14:26 | CP.PCM.PN ---
Subjective - Date & Time of Evaluation Date of Evaluation: 01/26/18 Time of Evaluation: 14:23 - Subjective Subjective: PT LESS SOB. ECHO PERFORMED. EF NML. NO EFFUSION. NO SIG VALVULAR HEART DISEASE. Objective - Vital Signs/Intake and Output Vital Signs (last 24 hours): Temp Pulse Resp BP Pulse Ox 97.9 F 100 H 18 111/75 94 L 01/26/18 07:50 01/26/18 07:50 01/26/18 07:50 01/26/18 07:50 01/26/18 07:50 Intake and Output: 01/26/18 01/26/18 06:59 18:59 Output Total 250 Balance -250 - Medications Medications: Current Medications Albuterol/Ipratropium (Duoneb 3 Mg/0.5 Mg (3 Ml) Ud) 3 ml INH RQ6 [facility] Last Admin: 01/26/18 13:22 Dose: Not Given Enoxaparin Sodium (Lovenox) 40 mg SC DAILY [facility] Last Admin: 01/26/18 10:02 Dose: 40 mg Guaifenesin (Robitussin) 200 mg PO Q4H PRN PRN Reason: Cough and congestion Last Admin: 01/26/18 10:08 Dose: 200 mg Ceftriaxone Sodium 1 gm/ (Sodium Chloride) 100 mls @ 100 mls/hr IVPB DAILY [facility]; Protocol Last Admin: 01/26/18 10:02 Dose: 100 mls/hr Methylprednisolone (Solu-Medrol) 60 mg IV Q8 [facility] Last Admin: 01/26/18 13:16 Dose: 60 mg Oxycodone/Acetaminophen (Percocet 5/325 Mg Tab) 1 tab PO Q4H PRN PRN Reason: Pain, moderate (4-7) Stop: 01/26/18 23:31 - Labs Labs: 01/24/18 07:12 01/25/18 17:09 PT 14.2 SECONDS (9.7-12.2) H 01/23/18 20:06 INR 1.3 01/23/18 20:06 APTT 32 SECONDS (21-34) 01/23/18 20:06 - Constitutional Appears: Well - Head Exam Head Exam: ATRAUMATIC, NORMAL INSPECTION, NORMOCEPHALIC - Eye Exam Eye Exam: EOMI, Normal appearance, PERRL. absent: Conjunctival injection, Nystagmus, Periorbital swelling, Periorbital tenderness, Scleral icterus Pupil Exam: NORMAL ACCOMODATION, PERRL - ENT Exam ENT Exam: Mucous Membranes Moist, Normal Exam. absent: Mucous Membranes Dry, Normal External Ear Exam, Normal Oropharynx, TM's Normal Bilaterally - Neck Exam Neck Exam: Full ROM, Normal Inspection. absent: Lymphadenopathy, Meningismus, Tenderness, Thyromegaly - Respiratory Exam Respiratory Exam: Rhonchi, Wheezes, NORMAL BREATHING PATTERN. absent: Accessory Muscle Use, Chest Wall Tenderness, Decreased Breath Sounds, Prolonged Expiratory Phase, Rales, Respiratory Distress, Stridor - Cardiovascular Exam Cardiovascular Exam: Tachycardia, +S1, +S2, Murmur - GI/Abdominal Exam GI & Abdominal Exam: Soft, Normal Bowel Sounds. absent: Bruit, Distended, Firm, Guarding, Rigid, Tenderness, Diminished Bowel Sounds, Hernia, Hyperactive Bowel Sounds, Hypoactive Bowel Sounds, Organomegaly, Pulsatile Mass, Rebound, Mass - Rectal Exam Rectal Exam: Deferred - Extremities Exam Extremities Exam: Full ROM, Normal Capillary Refill, Normal Inspection. absent: Calf Tenderness, Joint Swelling, Pedal Edema, Tenderness - Back Exam Back Exam: NORMAL INSPECTION. absent: CVA tenderness (L), CVA tenderness (R), Full ROM, muscle spasm, paraspinal tenderness, rash noted, tenderness, vertebral tenderness - Neurological Exam Neurological Exam: Alert, Awake, CN II-XII Intact, Normal Gait, Oriented x3. absent: Abnormal Gait, Altered, Motor Sensory Deficit, Reflexes Normal - Psychiatric Exam Psychiatric exam: Normal Affect, Normal Mood. absent: Agitated, Anxious, Depressed, Flat Affect, Homicidal Ideation, Manic, Suicidal Ideation - Skin Skin Exam: Dry, Intact, Normal Color, Warm. absent: Abrasion, Cyanosis, Diaphoretic, Erythema, Mottled, Pallor, Pallor, Petechiae, Rash, Urticaria, Vesicles Assessment and Plan (1) Lung mass Status: Acute (2) Abnormal EKG Status: Chronic (3) Sinus tachycardia Status: Acute (4) Dyspnea Status: Acute - Assessment and Plan (Free Text) Plan: ECHO IMAGES PERSONALLY REVIEWED. PTS SX'S ARE SECONDARY TO LUNG PATHOLOGY. PT HAD BONE SCAN TODAY. WILL SIGN OFF. PLEASE RECONSULT IF NEEDED. 45 MIN TOTAL CARE TIME.
--- NOTE | 2018-01-26 14:47 | NM ---
Date of service: 01/26/2018 PROCEDURE: Whole Body Bone Scan HISTORY: Metastatic lung cancer. COMPARISON: None available. TECHNIQUE: Following administration of 24.5 miCu of Tc MDP multiplanar whole body images were obtained. FINDINGS: Evidence for bony metastatic disease: None. Degenerative uptake: None. Physiologic uptake: Normal physiologic activity in the kidneys. Other findings: Solitary focus of increased uptake anterior right 3rd rib. This finding is more likely to be degenerative/posttraumatic in the solitary metastasis. IMPRESSION: No evidence of bony metastatic disease. Solitary focus of increased uptake anterior right 3rd rib of uncertain etiology/significance. Less likely to be related to neoplastic process than other more benign etiologies.
[2018-01-26] MEDS ORDERED: Phytonadione 1 mg/0.5 ml Inj (Neonatal) SC ONE (15:39)
[2018-01-26] MEDS ORDERED: Phytonadione 10 mg/ml Inj (Adult) SC ONE (16:15)
--- NOTE | 2018-01-26 16:51 | CP.PCM.PN ---
Subjective - Date & Time of Evaluation Date of Evaluation: 01/26/18 Time of Evaluation: 09:40 - Subjective Subjective: the patient seen and examined Complaining of shortness of breath Echocardiogram with normal LV function Afebrile CAT scan of the neck noted IR for biopsy Continue nebulizer treatment Continue steroids Objective - Vital Signs/Intake and Output Vital Signs (last 24 hours): Temp Pulse Resp BP Pulse Ox 98.7 F 108 H 18 102/61 96 01/26/18 15:00 01/26/18 15:00 01/26/18 15:00 01/26/18 15:00 01/26/18 15:00 Intake and Output: 01/26/18 01/26/18 06:59 18:59 Intake Total 500 Output Total 250 Balance -250 500 - Medications Medications: Current Medications Albuterol/Ipratropium (Duoneb 3 Mg/0.5 Mg (3 Ml) Ud) 3 ml INH RQ6 [facility] Last Admin: 01/26/18 13:22 Dose: Not Given Enoxaparin Sodium (Lovenox) 40 mg SC DAILY [facility] Last Admin: 01/26/18 10:02 Dose: 40 mg Guaifenesin (Robitussin) 200 mg PO Q4H PRN PRN Reason: Cough and congestion Last Admin: 01/26/18 10:08 Dose: 200 mg Ceftriaxone Sodium 1 gm/ (Sodium Chloride) 100 mls @ 100 mls/hr IVPB DAILY [facility]; Protocol Last Admin: 01/26/18 10:02 Dose: 100 mls/hr Methylprednisolone (Solu-Medrol) 60 mg IV Q8 [facility] Last Admin: 01/26/18 13:16 Dose: 60 mg Oxycodone/Acetaminophen (Percocet 5/325 Mg Tab) 1 tab PO Q4H PRN PRN Reason: Pain, moderate (4-7) Stop: 01/26/18 23:31 - Labs Labs: 01/24/18 07:12 01/25/18 17:09 PT 14.2 SECONDS (9.7-12.2) H 01/23/18 20:06 INR 1.3 01/23/18 20:06 APTT 32 SECONDS (21-34) 01/23/18 20:06 Assessment and Plan (1) Dyspnea Status: Acute (2) Multiple lung nodules on CT Status: Acute
--- NOTE | 2018-01-26 17:38 | CARD ---
APPROVED REPORT Date of service: 01/26/2018 EXAM: Two-dimensional and M-mode echocardiogram with Doppler and color Doppler. Other Information Quality : Technically LimitedRhythm : Technically limited study due to body habitus. INDICATION Dyspnea Infection:Rule out subacute bacterial endocarditis RISK FACTORS Smoking 2D DIMENSIONS IVSd1.1 (0.7-1.1cm)LVDd5.0 (3.9-5.9cm) PWd1.0 (0.7-1.1cm)LA Ddcjjs17 (18-58mL) LVDs3.9 (2.5-4.0cm)FS (%) 22.3 % LVEF (%)70.0 (>50%)LVEF (Roman's)75.02 % M-Mode DIMENSIONS Left Atrium (MM)3.14 (2.5-4.0cm)Aortic Root3.50 (2.2-3.7cm) Aortic Cusp Exc.2.46 (1.5-2.0cm)LVEF (%)68 (>50%) Mitral Valve MV E Iypxjnuo54.9cm/sMV A Daflzhvp153.3cm/sE/A ratio0.6 TDI Lateral E' Peak V13.06cm/sMedial E' Peak V11.34cm/sE/Lateral E'5.0 E/Medial E'5.8 LEFT VENTRICLE The left ventricle is normal size. There is normal left ventricular wall thickness. The left ventricular function is normal. The left ventricular ejection fraction is within the normal range. No regional wall motion abnormalities noted. The left ventricular diastolic function is abnormal, type I. No left ventricle thrombus noted on this study. There is no ventricular septal defect visualized. There is no left ventricular aneurysm. There is no mass noted in the left ventricle. RIGHT VENTRICLE The right ventricle is normal size. There is normal right ventricular wall thickness. The right ventricular systolic function is normal. ATRIA The left atrium size is normal. The right atrium size is normal. The interatrial septum is intact with no evidence for an atrial septal defect. AORTIC VALVE The aortic valve is normal in structure and function. No aortic regurgitation is present. There is no aortic valvular stenosis. THe study is sub-optimal. There is a suggestion of a mobile aortic mass. Repeat study is advised MITRAL VALVE The mitral valve is normal in structure and function. There is no evidence of mitral valve prolapse. There is no mitral valve stenosis. There is no mitral valve regurgitation noted. TRICUSPID VALVE The tricuspid valve is normal in structure and function. There is no tricuspid valve regurgitation noted. There is no tricuspid valve prolapse or vegetation. There is no tricuspid valve stenosis. PULMONIC VALVE The pulmonary valve is normal in structure and function. There is no pulmonic valvular regurgitation. There is no pulmonic valvular stenosis. GREAT VESSELS The aortic root is normal in size. The ascending aorta is normal in size. The pulmonary artery is normal. The IVC is normal in size and collapses >50% with inspiration. PERICARDIAL EFFUSION The pericardium appears normal. There is no pleural effusion. <Conclusion> Normal left ventricular systolic function and doppler. There is a suggestion of a mobile aortic mass. Repeat study is advised
--- NOTE | 2018-01-26 19:46 | CP.PCM.CON ---
History of Present Illness - History of Present Illness History of Present Illness: 67 yo man brought in by family with c/o SOB, progressive dyspnea, cough and weight loss of kore than 50 lbs over the past 3 months. The history was obtained from the patient and his cousin Erica, who says that the patient is autistic, unable to comprehend complex issues and make decisions. The patient at this time lives with his 90 year old aunt, rarely leaves the house and as per the cousin is a long standing smoker. The patient had a CAT scan which is showing bilateral lung nodules and is scheduled to have a biopsy tomorrow. Past Patient History - Past Medical History & Family History Past Medical History?: No Past Family History: Reviewed and not pertinent - Past Social History Smoking Status: Heavy Smoker > 10 Cigarettes Daily Chewing Tobacco Use: No Cigar Use: No Alcohol: None Drugs: Denies Home Situation {Lives}: With Family Domestic Violence: Negative - CARDIAC Hx Cardiac Disorders: No - PULMONARY Hx Asthma: Yes - NEUROLOGICAL Hx Neurological Disorder: No - HEENT Hx HEENT Problems: No - RENAL Hx Chronic Kidney Disease: No - ENDOCRINE/METABOLIC Hx Endocrine Disorders: No - HEMATOLOGICAL/ONCOLOGICAL Hx Blood Disorders: No - INTEGUMENTARY Hx Dermatological Problems: No - MUSCULOSKELETAL/RHEUMATOLOGICAL Hx Musculoskeletal Disorders: No Hx Falls: No - GASTROINTESTINAL Hx Gastrointestinal Disorders: No - GENITOURINARY/GYNECOLOGICAL Hx Genitourinary Disorders: No - PSYCHIATRIC Hx Psychophysiologic Disorder: No Hx Substance Use: No - SURGICAL HISTORY Hx Surgeries: No - ANESTHESIA Hx Anesthesia: No Meds Allergies/Adverse Reactions: Allergies Allergy/AdvReac Type Severity Reaction Status Date / Time No Known Allergies Allergy Verified 01/23/18 19:16 - Medications Medications: Current Medications Albuterol/Ipratropium (Duoneb 3 Mg/0.5 Mg (3 Ml) Ud) 3 ml INH RQ6 [facility] Last Admin: 01/26/18 13:22 Dose: Not Given Enoxaparin Sodium (Lovenox) 40 mg SC DAILY [facility] Last Admin: 01/26/18 10:02 Dose: 40 mg Guaifenesin (Robitussin) 200 mg PO Q4H PRN PRN Reason: Cough and congestion Last Admin: 01/26/18 10:08 Dose: 200 mg Ceftriaxone Sodium 1 gm/ (Sodium Chloride) 100 mls @ 100 mls/hr IVPB DAILY [facility]; Protocol Last Admin: 01/26/18 10:02 Dose: 100 mls/hr Methylprednisolone (Solu-Medrol) 60 mg IV Q8 [facility] Last Admin: 01/26/18 13:16 Dose: 60 mg Oxycodone/Acetaminophen (Percocet 5/325 Mg Tab) 1 tab PO Q4H PRN PRN Reason: Pain, moderate (4-7) Stop: 01/26/18 23:31 Results - Vital Signs Recent Vital Signs: Last Vital Signs Temp 98.7 F 01/26/18 15:00 Pulse 108 H 01/26/18 15:00 Resp 18 01/26/18 15:00 BP 102/61 01/26/18 15:00 Pulse Ox 96 01/26/18 15:00 - Labs Result Diagrams: 01/24/18 07:12 01/25/18 17:09 Assessment & Plan (1) Multiple lung nodules on CT Assessment and Plan: 67 yo man with long standing history of tobacco use, new weight loss and [place], CAt scan showing multiple lung nodules very suggestive of a malignancy. Had a lengthy discussion with the cousin and the patient about the high likelihood of cancer, they are willing for the biopsy. CEA level ordered Status: Acute
--- NOTE | 2018-01-26 22:32 | CP.PCM.PN ---
Subjective - Subjective Subjective: dictated Objective - Vital Signs/Intake and Output Vital Signs (last 24 hours): Temp Pulse Resp BP Pulse Ox 98.7 F 108 H 18 102/61 96 01/26/18 15:00 01/26/18 15:00 01/26/18 15:00 01/26/18 15:00 01/26/18 15:00 Intake and Output: 01/26/18 01/27/18 18:59 06:59 Intake Total 500 Balance 500 - Medications Medications: Current Medications Albuterol/Ipratropium (Duoneb 3 Mg/0.5 Mg (3 Ml) Ud) 3 ml INH RQ6 [facility] Last Admin: 01/26/18 20:08 Dose: 3 ml Enoxaparin Sodium (Lovenox) 40 mg SC DAILY [facility] Last Admin: 01/26/18 10:02 Dose: 40 mg Guaifenesin (Robitussin) 200 mg PO Q4H PRN PRN Reason: Cough and congestion Last Admin: 01/26/18 10:08 Dose: 200 mg Ceftriaxone Sodium 1 gm/ (Sodium Chloride) 100 mls @ 100 mls/hr IVPB DAILY [facility]; Protocol Last Admin: 01/26/18 10:02 Dose: 100 mls/hr Methylprednisolone (Solu-Medrol) 60 mg IV Q8 [facility] Last Admin: 01/26/18 21:52 Dose: 60 mg Oxycodone/Acetaminophen (Percocet 5/325 Mg Tab) 1 tab PO Q4H PRN PRN Reason: Pain, moderate (4-7) Stop: 01/26/18 23:31 - Labs Labs: 01/24/18 07:12 01/25/18 17:09 PT 14.2 SECONDS (9.7-12.2) H 01/23/18 20:06 INR 1.3 01/23/18 20:06 APTT 32 SECONDS (21-34) 01/23/18 20:06
[2018-01-27] MEDS: Albuterol-Ipratrop 3 mg / 0.5 (3 ml) UD INH SCH ×4 (01:42→20:15)
--- NOTE | 2018-01-27 04:08 | PN ---
DATE: 01/26/2018 SUBJECTIVE: The patient is seen by Oncology. The patient has cough, wheezing, and he has over 50 pounds of weight loss. The patient is for biopsy. The patient is seen by Hem/Onc. PHYSICAL EXAMINATION: VITAL SIGNS: Blood pressure 102/61, pulse 108, respiratory rate 18, and temperature 98.7. LUNGS: Bilateral inspiratory and expiratory rales. No rhonchi. CARDIOVASCULAR SYSTEM: S1 and S2 regular. ABDOMEN: Soft. ASSESSMENT: 1. Lung masses, rule out lung cancer. 2. Chronic obstructive pulmonary disease. 3. Dehydration. PLAN: Lung biopsy. Gavin Samuels MD
[2018-01-27] MEDS: MethylPREDNISolone 40 mg Vial IV SCH ×3 (05:28→21:15)
[2018-01-27 07:44] LABS: BASO % 0.1 % (0.0-2.0); HEMOGLOBIN 11.7 g/dL (12.0-18.0); LYMPH # 0.4 K/uL (1.0-4.3); LYMPH % 3.3 % (20.0-40.0); MEAN CELL VOLUME 82.2 fL (80.0-94.0); MEAN CORPUSCULAR HEMOGLOBIN 26.4 pg (27.0-31.0); MEAN CORPUSCULAR HGB CONC 32.1 g/dL (33.0-37.0); MEAN PLATELET VOLUME 6.8 fL (7.2-11.7); MONO # 0.5 K/uL (0.0-0.8); MONO % 3.8 % (0.0-10.0); NEUT # 11.5 K/uL (1.8-7.0); NEUT % 92.8 % (50.0-75.0); PLATELET COUNT 314 K/uL (130-400); RBC 4.42 Mil/uL (4.40-5.90); RED CELL DISTRIBUTION WIDTH 15.3 % (11.5-14.5); WHITE BLOOD COUNT 12.4 K/uL (4.8-10.8)
[2018-01-27 08:07] LABS: BLOOD UREA NITROGEN 20 mg/dL (9-20); CALCIUM 9.2 mg/dl (8.6-10.4); GFR NON-AFRICAN AMERICAN > 60
[2018-01-27 09:24] LABS: LYMPHOCYTE 3 % (20-40); MONOCYTE 6 % (0-10); NEUTROPHIL 91 % (50-75); PLATELET ESTIMATE NORMAL (NORMAL); TOTAL CELLS COUNTED 100
[2018-01-27 09:25] LABS: ANISOCYTOSIS SLIGHT; HYPOCHROMIC SLIGHT; POLYCHROMIC SLIGHT
[2018-01-27] MEDS: Enoxaparin 40 mg Syringe SC SCH (10:51)
--- NOTE | 2018-01-27 13:54 | CT ---
Date of service: 01/23/2018 PROCEDURE: CT Chest without contrast HISTORY: Right upper lobe mass. COMPARISON: Comparison made with chest radiograph dated 01/23/2018 and bone scan dated 01/26/2018. TECHNIQUE: Contiguous axial images were obtained through the chest without intravenous contrast enhancement. Sagittal and coronal reconstructions were performed. Radiation dose: Total exam DLP = 339.9 mGy-cm. This CT exam was performed using one or more of the following dose reduction techniques: Automated exposure control, adjustment of the mA and/or kV according to patient size, and/or use of iterative reconstruction technique. FINDINGS: LUNGS: The current study reveals multiple rounded and elliptical shaped soft tissue masses scattered throughout the upper and lower lobes bilaterally consistent with cannonball metastases. Some of the larger lesions have undergone some confluence exhibiting lobulated borders. The there is a large soft tissue density in the right anterior upper lobe which could represent a combination of mass lesion and or postobstructive atelectasis. Underlying paraseptal and bullous emphysematous changes upper lobes are felt to be present as well. Suspect relatively prominent bullous changed left posteromedial lung base. MEDIASTINUM: Heart size is within range of normal. No significant pericardial effusion. Ascending thoracic aorta measures approximately 3.3 cm and descending thoracic aorta measures approximately 2.8 cm. Minimal aortic atherosclerotic calcification.Pulmonary trunk measures approximately varying sized 3.1 cm. Trachea appears midline along the superior margin and extends slightly to the right more inferiorly likely due to the aforementioned suspected atelectasis in the right upper lobe. PLEURA: No pleural fluid. No pneumothorax. BONES: There appears to be a lytic lesion and pathologic fracture anterior aspect right 3rd rib corresponding to abnormal uptake in this location on prior whole-body bone scan UPPER ABDOMEN: There is a vague somewhat rounded area of low attenuation seen in the inferior aspect right lobe liver best seen on axial image number 135 through 140. Possibility of metastatic lesion in this location must be considered. Smaller metastatic lesion near the thomas hepatis cannot be excluded (see axial series 4 image # 131). Probable small hepatic cyst left lobe liver. There appear to be at least 3 additional small elliptical shaped low-attenuation foci left lobe liver that 2 of the largest of which exhibit Hounsfield units in the single digits likely representing hepatic cysts.. Consider follow-up triple phase CT scan of the liver the for further evaluation. Spleen is enlarged measuring nearly 14 cm in AP dimension.. OTHER FINDINGS: None. IMPRESSION: There are multiple varying sized round and elliptical shaped masses scattered throughout the upper and lower lobes bilaterally consistent with accountable metastases.. Large soft tissue mass like density right upper lobe could represent postobstructive atelectasis. Possible metastatic lesion right lobe liver.. Smaller metastatic lesion near the thomas hepatis cannot be excluded. Probable small hepatic cyst left lobe liver. Suspect small metastatic lesion with pathologic fracture anterior aspect right 3rd rib. Splenomegaly.
--- NOTE | 2018-01-27 17:31 | CP.PCM.PN ---
Subjective - Date & Time of Evaluation Date of Evaluation: 01/27/18 Time of Evaluation: 12:40 - Subjective Subjective: Patient seen and examined at bedside, lying down comfortably. Afebrile and in no acute distress. Denies SOB, cough, chest pain, fever/chills Ordered repeat ECHO today WBC 12.4 on 01/27/18 Continue nebulizer and steroids Bone Scan Nuclear Medicine (01/26/18): No evidence of bony metastatic disease. Solitary focus of increased uptake anterior right 3rd rib of uncertain etiology/significance. Less likely to be related to neoplastic process than other more benign etiologies. Objective - Vital Signs/Intake and Output Vital Signs (last 24 hours): Temp Pulse Resp BP Pulse Ox 98.1 F 106 H 20 113/76 95 01/27/18 15:05 01/27/18 15:05 01/27/18 15:05 01/27/18 15:05 01/27/18 15:05 Intake and Output: 01/27/18 01/27/18 06:59 18:59 Output Total 1200 Balance -1200 - Medications Medications: Current Medications Albuterol/Ipratropium (Duoneb 3 Mg/0.5 Mg (3 Ml) Ud) 3 ml INH RQ6 [facility] Last Admin: 01/27/18 14:07 Dose: 3 ml Enoxaparin Sodium (Lovenox) 40 mg SC DAILY [facility] Last Admin: 01/27/18 10:51 Dose: 40 mg Guaifenesin (Robitussin) 200 mg PO Q4H PRN PRN Reason: Cough and congestion Last Admin: 01/26/18 10:08 Dose: 200 mg Ceftriaxone Sodium 1 gm/ (Sodium Chloride) 100 mls @ 100 mls/hr IVPB DAILY [facility]; Protocol Last Admin: 01/27/18 10:50 Dose: 100 mls/hr Methylprednisolone (Solu-Medrol) 60 mg IV Q8 [facility] Last Admin: 01/27/18 14:27 Dose: 60 mg - Labs Labs: 01/27/18 07:32 01/27/18 07:32 PT 14.2 SECONDS (9.7-12.2) H 01/23/18 20:06 INR 1.3 01/23/18 20:06 APTT 32 SECONDS (21-34) 01/23/18 20:06 - Head Exam Head Exam: ATRAUMATIC, NORMOCEPHALIC - ENT Exam ENT Exam: Mucous Membranes Moist - Neck Exam Neck Exam: Normal Inspection - Respiratory Exam Respiratory Exam: Rhonchi, Wheezes - Cardiovascular Exam Cardiovascular Exam: REGULAR RHYTHM - GI/Abdominal Exam GI & Abdominal Exam: Soft, Normal Bowel Sounds - Extremities Exam Extremities Exam: Full ROM, Normal Inspection Assessment and Plan (1) Dyspnea Status: Acute (2) Multiple lung nodules on CT Assessment & Plan: biopsy tomorrow by IR Status: Acute
--- NOTE | 2018-01-27 19:07 | CARD ---
APPROVED REPORT Date of service: 01/23/2018 EKG Measurement Heart [id number] <Conclusion> Sinus tachycardia Possible Left atrial enlargement Borderline ECG incomplete rbbb
--- NOTE | 2018-01-27 22:45 | CP.PCM.PN ---
Subjective - Subjective Subjective: dictated Objective - Vital Signs/Intake and Output Vital Signs (last 24 hours): Temp Pulse Resp BP Pulse Ox 98.1 F 106 H 20 113/76 95 01/27/18 15:05 01/27/18 15:05 01/27/18 15:05 01/27/18 15:05 01/27/18 15:05 - Medications Medications: Current Medications Albuterol/Ipratropium (Duoneb 3 Mg/0.5 Mg (3 Ml) Ud) 3 ml INH RQ6 [facility] Last Admin: 01/27/18 20:15 Dose: 3 ml Enoxaparin Sodium (Lovenox) 40 mg SC DAILY [facility] Last Admin: 01/27/18 10:51 Dose: 40 mg Guaifenesin (Robitussin) 200 mg PO Q4H PRN PRN Reason: Cough and congestion Last Admin: 01/26/18 10:08 Dose: 200 mg Ceftriaxone Sodium 1 gm/ (Sodium Chloride) 100 mls @ 100 mls/hr IVPB DAILY [facility]; Protocol Last Admin: 01/27/18 10:50 Dose: 100 mls/hr Methylprednisolone (Solu-Medrol) 60 mg IV Q8 [facility] Last Admin: 01/27/18 21:15 Dose: 60 mg - Labs Labs: 01/27/18 07:32 01/27/18 07:32 PT 14.2 SECONDS (9.7-12.2) H 01/23/18 20:06 INR 1.3 01/23/18 20:06 APTT 32 SECONDS (21-34) 01/23/18 20:06
--- NOTE | 2018-01-28 01:19 | PN ---
DATE: 01/27/2018 SUBJECTIVE: The patient is coughing, wheezing, and he is less short of breath. No nausea or vomiting. He is for lung biopsy. No fever. No chills. PHYSICAL EXAMINATION: VITAL SIGNS: Blood pressure 113/76, pulse , respiratory rate 20, temperature 98.1. LUNGS: Bilateral inspiratory and expiratory rhonchi. Decreased air entry. CARDIOVASCULAR SYSTEM: S1 and S2 regular. ABDOMEN: Soft. LABORATORY DATA: WBC 12.4, hemoglobin 11.7, hematocrit 38.1, platelets 314. Sodium 135, potassium 4.6, chloride 94, bicarb 35, BUN 20, creatinine 0.7. ASSESSMENT: 1. Lung masses, rule out lung cancer, primary versus secondary. 2. Chronic obstructive pulmonary disease. PLAN: Continue current medications. Monitor the patient. . Gavin Samuels MD
[2018-01-28] MEDS: Albuterol-Ipratrop 3 mg / 0.5 (3 ml) UD INH SCH ×4 (01:28→19:23)
[2018-01-28] MEDS: MethylPREDNISolone 40 mg Vial IV SCH ×3 (05:29→21:50)
[2018-01-28] MEDS: Enoxaparin 40 mg Syringe SC SCH (09:38)
[2018-01-28] MEDS ORDERED: Propofol 10 mg/ml Inj (20 ML) ONE (11:09)
--- NOTE | 2018-01-28 11:35 | PCM.SURG1 ---
Surgeon's Initial Post Op Note - Surgeon's Notes Surgeon: Jaun Short MD Manager Foreign: NONE Type of Anesthesia: IV Sedation Pre-Operative Diagnosis: Lung masses Operative Findings: CT showed multiple right and left lung masses consistent with metastatic disease. Post-Operative Diagnosis: Lung masses Operation Performed: CT guided right lung mass biopsy Specimen/Specimens Removed: 20 g core x 3 Right upper lobe lung mass Estimated Blood Loss: EBL {In ML}: 0 Blood Products Given: N/A Drains Used: No Drains Post-Op Condition: Fair Date of Surgery/Procedure: 01/28/18 Time of Surgery/Procedure: 11:25
--- NOTE | 2018-01-28 11:43 | CT ---
PROCEDURE: Date of procedure: 01/28/2018 Procedure: 1. CT-guided lung mass biopsy, CPT [address] Guidance for biopsy, [id number] Radiation: 538.89 MGy-cm Medications: The patient was sedated by anesthesiologist along with physiologic monitoring. HISTORY: Multiple right and left lung masses TECHNIQUE: Following informed consent, the Pt's chest was marked. The Pt was placed supine on the CT table and procedure time out was performed. A noncontrast CT scan was performed. Noncontrast CT scan confirmed the presence of multiple masses within the right and left lung. A skin localizer was placed on the patient's right anterior chest and a repeat CT scan was performed. The skin was marked, prepped, and draped in the usual sterile fashion. After the skin was anesthetized with lidocaine and the patient sedated by the anesthesiologist, a 20 gauge core needle was advanced percutaneously under direct CT guidance into the mass. Upon confirmation of needle position, three 20-gauge core specimens were obtained and sent for routine pathology. The needle was removed and a xeroform dressing was applied. A post biopsy CT scan showed no pneumothorax. IMPRESSION: CT guided core biopsy right upper lobe lung mass. There are multiple masses of varying sizes within right and left lung consistent with metastatic disease. There is no pneumothorax following lung mass biopsy.
--- NOTE | 2018-01-28 15:18 | CP.PCM.PN ---
Subjective - Date & Time of Evaluation Date of Evaluation: 01/28/18 Time of Evaluation: 10:30 - Subjective Subjective: Patient seen and examined Status post lung biopsy Denies shortness of breath at rest Afebrile Objective - Vital Signs/Intake and Output Vital Signs (last 24 hours): Temp Pulse Resp BP Pulse Ox 98.1 F 93 H 20 119/75 97 01/28/18 07:22 01/28/18 07:22 01/28/18 07:22 01/28/18 07:22 01/28/18 07:22 Intake and Output: 01/28/18 01/28/18 06:59 18:59 Output Total 700 Balance -700 - Medications Medications: Current Medications Albuterol/Ipratropium (Duoneb 3 Mg/0.5 Mg (3 Ml) Ud) 3 ml INH RQ6 [facility] Last Admin: 01/28/18 13:24 Dose: 3 ml Enoxaparin Sodium (Lovenox) 40 mg SC DAILY [facility] Last Admin: 01/28/18 09:38 Dose: Not Given Guaifenesin (Robitussin) 200 mg PO Q4H PRN PRN Reason: Cough and congestion Last Admin: 01/26/18 10:08 Dose: 200 mg Ceftriaxone Sodium 1 gm/ (Sodium Chloride) 100 mls @ 100 mls/hr IVPB DAILY [facility]; Protocol Last Admin: 01/28/18 09:41 Dose: 100 mls/hr Methylprednisolone (Solu-Medrol) 60 mg IV Q8 [facility] Last Admin: 01/28/18 13:58 Dose: 60 mg - Labs Labs: 01/27/18 07:32 01/27/18 07:32 PT 14.2 SECONDS (9.7-12.2) H 01/23/18 20:06 INR 1.3 01/23/18 20:06 APTT 32 SECONDS (21-34) 01/23/18 20:06 - Head Exam Head Exam: ATRAUMATIC, NORMOCEPHALIC - ENT Exam ENT Exam: Mucous Membranes Moist - Neck Exam Neck Exam: Normal Inspection - Respiratory Exam Respiratory Exam: Decreased Breath Sounds - Cardiovascular Exam Cardiovascular Exam: REGULAR RHYTHM - GI/Abdominal Exam GI & Abdominal Exam: Soft Assessment and Plan (1) Dyspnea Status: Acute (2) Multiple lung nodules on CT Assessment & Plan: consistent with metastatic disease Status post lung biopsy Follow-up pathology report Long history of smoking Continue bronchodilator Continue steroids Status: Acute
--- NOTE | 2018-01-28 21:40 | CP.PCM.PN ---
Subjective - Subjective Subjective: dictated Objective - Vital Signs/Intake and Output Vital Signs (last 24 hours): Temp Pulse Resp BP Pulse Ox 98.4 F 122 H 20 109/64 95 01/28/18 15:12 01/28/18 15:12 01/28/18 15:12 01/28/18 15:12 01/28/18 15:12 - Medications Medications: Current Medications Albuterol/Ipratropium (Duoneb 3 Mg/0.5 Mg (3 Ml) Ud) 3 ml INH RQ6 [facility] Last Admin: 01/28/18 19:23 Dose: 3 ml Enoxaparin Sodium (Lovenox) 40 mg SC DAILY [facility] Last Admin: 01/28/18 09:38 Dose: Not Given Guaifenesin (Robitussin) 200 mg PO Q4H PRN PRN Reason: Cough and congestion Last Admin: 01/26/18 10:08 Dose: 200 mg Ceftriaxone Sodium 1 gm/ (Sodium Chloride) 100 mls @ 100 mls/hr IVPB DAILY [facility]; Protocol Last Admin: 01/28/18 09:41 Dose: 100 mls/hr Methylprednisolone (Solu-Medrol) 40 mg IV Q8 [facility] - Labs Labs: 01/27/18 07:32 01/27/18 07:32 PT 14.2 SECONDS (9.7-12.2) H 01/23/18 20:06 INR 1.3 01/23/18 20:06 APTT 32 SECONDS (21-34) 01/23/18 20:06
[2018-01-29] MEDS: Albuterol-Ipratrop 3 mg / 0.5 (3 ml) UD INH SCH ×4 (01:10→20:20)
--- NOTE | 2018-01-29 01:42 | PN ---
DATE: 01/28/2018 SUBJECTIVE: The patient, Parker, is less short of breath, less cough, less wheezing. He is more alert. He is tachycardic. He is status post lung biopsy, biopsy is pending. Afebrile, no fever. PHYSICAL EXAMINATION: VITAL SIGNS: Blood pressure 109/64, pulse 122, respiratory rate 20, temperature 98.4. LUNGS: Bilateral decreased air entry. Positive rhonchi. CARDIOVASCULAR: S1 and S2, regular. ABDOMEN: Soft. ASSESSMENT: 1. Lung masses, rule out malignancy, primary versus secondary. 2. Chronic obstructive pulmonary disease. PLAN: Continue current medications. Awaiting biopsy. Gavin Samuels MD
[2018-01-29] MEDS: MethylPREDNISolone 40 mg Vial IV SCH ×3 (05:44→21:19)
[2018-01-29] MEDS: Enoxaparin 40 mg Syringe SC SCH (10:34)
--- NOTE | 2018-01-29 15:50 | CP.PCM.PN ---
Subjective - Date & Time of Evaluation Date of Evaluation: 01/29/18 Time of Evaluation: 10:25 - Subjective Subjective: Patient seen and examined at bedside, lying down comfortably. Afebrile and in no acute distress. Denies SOB, cough, chest pain, fever/chills COPD due to long history of smoking. Will need oxygen, high dose prednisone and LABA/LAMA combo upon discharge. F/u in OP clinic in 1 week and follow up with pathology report. Continue nebulizer and steroids Lung Biopsy CT (01/28/18): Multiple masses of varying sizes within right and left lung consistent with metastatic disease. No pneumothorax following lung mass biopsy. Objective - Vital Signs/Intake and Output Vital Signs (last 24 hours): Temp Pulse Resp BP Pulse Ox 97.7 F 90 18 114/75 98 01/29/18 07:25 01/29/18 07:25 01/29/18 07:25 01/29/18 07:25 01/29/18 07:25 Intake and Output: 01/29/18 01/29/18 06:59 18:59 Output Total 400 Balance -400 - Medications Medications: Current Medications Albuterol/Ipratropium (Duoneb 3 Mg/0.5 Mg (3 Ml) Ud) 3 ml INH RQ6 [facility] Last Admin: 01/29/18 13:09 Dose: 3 ml Enoxaparin Sodium (Lovenox) 40 mg SC DAILY [facility] Last Admin: 01/29/18 10:34 Dose: 40 mg Guaifenesin (Robitussin) 200 mg PO Q4H PRN PRN Reason: Cough and congestion Last Admin: 01/26/18 10:08 Dose: 200 mg Ceftriaxone Sodium 1 gm/ (Sodium Chloride) 100 mls @ 100 mls/hr IVPB DAILY [facility]; Protocol Last Admin: 01/29/18 10:34 Dose: 100 mls/hr Methylprednisolone (Solu-Medrol) 40 mg IV Q8 [facility] Last Admin: 01/29/18 14:04 Dose: 40 mg - Labs Labs: 01/27/18 07:32 01/27/18 07:32 PT 14.2 SECONDS (9.7-12.2) H 01/23/18 20:06 INR 1.3 01/23/18 20:06 APTT 32 SECONDS (21-34) 01/23/18 20:06 Assessment and Plan (1) Dyspnea Status: Acute (2) Multiple lung nodules on CT Status: Acute
--- NOTE | 2018-01-29 17:48 | CP.PCM.PN ---
Subjective - Date & Time of Evaluation Date of Evaluation: 01/29/18 Time of Evaluation: 17:27 - Subjective Subjective: The patient is clinically better, still with cough. The patient requesting to go home. Plan- Had a lengthy conversation with his cousin(RUBEN), regarding the clinical picture of advanced cancer, elevated tumor markers and clinical Stage 4 disease. If the patient is discharged home, he will return next Friday to the office to have a discussion regarding results and treatment options and possible further testing(eg, PET scan), if he wishes to pursue treatment Objective - Vital Signs/Intake and Output Vital Signs (last 24 hours): Temp Pulse Resp BP Pulse Ox 97.9 F 99 H 20 107/71 98 01/29/18 15:00 01/29/18 15:00 01/29/18 15:00 01/29/18 15:00 01/29/18 15:00 Intake and Output: 01/29/18 01/29/18 06:59 18:59 Output Total 400 Balance -400 - Medications Medications: Current Medications Albuterol/Ipratropium (Duoneb 3 Mg/0.5 Mg (3 Ml) Ud) 3 ml INH RQ6 [facility] Last Admin: 01/29/18 13:09 Dose: 3 ml Enoxaparin Sodium (Lovenox) 40 mg SC DAILY [facility] Last Admin: 01/29/18 10:34 Dose: 40 mg Guaifenesin (Robitussin) 200 mg PO Q4H PRN PRN Reason: Cough and congestion Last Admin: 01/26/18 10:08 Dose: 200 mg Ceftriaxone Sodium 1 gm/ (Sodium Chloride) 100 mls @ 100 mls/hr IVPB DAILY [facility]; Protocol Last Admin: 01/29/18 10:34 Dose: 100 mls/hr Methylprednisolone (Solu-Medrol) 40 mg IV Q8 [facility] Last Admin: 01/29/18 14:04 Dose: 40 mg - Labs Labs: 01/27/18 07:32 01/27/18 07:32 PT 14.2 SECONDS (9.7-12.2) H 01/23/18 20:06 INR 1.3 01/23/18 20:06 APTT 32 SECONDS (21-34) 01/23/18 20:06 Assessment and Plan (1) Multiple lung nodules on CT Status: Acute
--- NOTE | 2018-01-29 21:54 | CP.PCM.PN ---
Subjective - Subjective Subjective: dictated Objective - Vital Signs/Intake and Output Vital Signs (last 24 hours): Temp Pulse Resp BP Pulse Ox 97.9 F 99 H 20 107/71 98 01/29/18 15:00 01/29/18 15:00 01/29/18 15:00 01/29/18 15:00 01/29/18 15:00 - Medications Medications: Current Medications Albuterol/Ipratropium (Duoneb 3 Mg/0.5 Mg (3 Ml) Ud) 3 ml INH RQ6 [facility] Last Admin: 01/29/18 20:20 Dose: 3 ml Enoxaparin Sodium (Lovenox) 40 mg SC DAILY [facility] Last Admin: 01/29/18 10:34 Dose: 40 mg Guaifenesin (Robitussin) 200 mg PO Q4H PRN PRN Reason: Cough and congestion Last Admin: 01/26/18 10:08 Dose: 200 mg Ceftriaxone Sodium 1 gm/ (Sodium Chloride) 100 mls @ 100 mls/hr IVPB DAILY [facility]; Protocol Last Admin: 01/29/18 10:34 Dose: 100 mls/hr Methylprednisolone (Solu-Medrol) 40 mg IV Q8 [facility] Last Admin: 01/29/18 21:19 Dose: 40 mg - Labs Labs: 01/27/18 07:32 01/27/18 07:32 PT 14.2 SECONDS (9.7-12.2) H 01/23/18 20:06 INR 1.3 01/23/18 20:06 APTT 32 SECONDS (21-34) 01/23/18 20:06
[2018-01-30] MEDS: Albuterol-Ipratrop 3 mg / 0.5 (3 ml) UD INH SCH ×4 (02:33→20:14)
[2018-01-30] MEDS: MethylPREDNISolone 40 mg Vial IV SCH ×3 (05:24→21:48)
[2018-01-30 08:43] LABS: BASO % 0.1 % (0.0-2.0); HEMOGLOBIN 12.9 g/dL (12.0-18.0); LYMPH # 0.4 K/uL (1.0-4.3); LYMPH % 2.5 % (20.0-40.0); MEAN CELL VOLUME 82.9 fL (80.0-94.0); MEAN CORPUSCULAR HEMOGLOBIN 26.9 pg (27.0-31.0); MEAN CORPUSCULAR HGB CONC 32.4 g/dL (33.0-37.0); MEAN PLATELET VOLUME 7.4 fL (7.2-11.7); MONO # 0.7 K/uL (0.0-0.8); MONO % 4.2 % (0.0-10.0); NEUT % 93.2 % (50.0-75.0); PLATELET COUNT 288 K/uL (130-400); RED CELL DISTRIBUTION WIDTH 15.5 % (11.5-14.5); WHITE BLOOD COUNT 16.1 K/uL (4.8-10.8)
[2018-01-30 08:56] LABS: BLOOD UREA NITROGEN 21 mg/dL (9-20); CALCIUM 8.9 mg/dl (8.6-10.4); GFR NON-AFRICAN AMERICAN > 60
[2018-01-30 09:17] LABS: LYMPHOCYTE 4 % (20-40); MONOCYTE 3 % (0-10); NEUTROPHIL 93 % (50-75); TOTAL CELLS COUNTED 100
[2018-01-30 09:18] LABS: PLATELET ESTIMATE NORMAL (NORMAL)
[2018-01-30 09:21] LABS: ANISOCYTOSIS SLIGHT; HYPOCHROMIC SLIGHT; POLYCHROMIC SLIGHT
[2018-01-30] MEDS: Enoxaparin 40 mg Syringe SC SCH (10:24)
--- NOTE | 2018-01-30 14:46 | CP.PCM.PN ---
Subjective - Date & Time of Evaluation Date of Evaluation: 01/30/18 Time of Evaluation: 10:00 - Subjective Subjective: Patient seen and examined at bedside, lying down comfortably. Afebrile and in no acute distress. Denies SOB, cough, chest pain, fever/chills WBC 16.1 on 01/30/18 COPD due to long history of smoking. Will need oxygen, high dose prednisone and LABA/LAMA combo upon discharge. F/u in OP clinic in 1 week and follow up with pathology report. Continue nebulizer and steroids Objective - Vital Signs/Intake and Output Vital Signs (last 24 hours): Temp Pulse Resp BP Pulse Ox 98.4 F 91 H 20 118/79 97 01/30/18 07:20 01/30/18 07:20 01/30/18 07:20 01/30/18 07:20 01/30/18 07:20 Intake and Output: 01/30/18 01/30/18 06:59 18:59 Output Total 750 Balance -750 - Medications Medications: Current Medications Albuterol/Ipratropium (Duoneb 3 Mg/0.5 Mg (3 Ml) Ud) 3 ml INH RQ6 [facility] Last Admin: 01/30/18 13:35 Dose: 3 ml Enoxaparin Sodium (Lovenox) 40 mg SC DAILY [facility] Last Admin: 01/30/18 10:24 Dose: 40 mg Guaifenesin (Robitussin) 200 mg PO Q4H PRN PRN Reason: Cough and congestion Last Admin: 01/26/18 10:08 Dose: 200 mg Ceftriaxone Sodium 1 gm/ (Sodium Chloride) 100 mls @ 100 mls/hr IVPB DAILY [facility]; Protocol Last Admin: 01/30/18 10:25 Dose: 100 mls/hr Methylprednisolone (Solu-Medrol) 40 mg IV Q8 [facility] Last Admin: 01/30/18 13:54 Dose: 40 mg - Labs Labs: 01/30/18 08:25 01/30/18 08:25 PT 14.2 SECONDS (9.7-12.2) H 01/23/18 20:06 INR 1.3 01/23/18 20:06 APTT 32 SECONDS (21-34) 01/23/18 20:06 Assessment and Plan (1) Dyspnea Status: Acute (2) Multiple lung nodules on CT Status: Acute
--- NOTE | 2018-01-30 23:49 | CP.PCM.PN ---
Subjective - Subjective Subjective: dictated Objective - Vital Signs/Intake and Output Vital Signs (last 24 hours): Temp Pulse Resp BP Pulse Ox 99 F 115 H 20 117/74 96 01/30/18 15:25 01/30/18 15:25 01/30/18 15:25 01/30/18 15:25 01/30/18 15:25 Intake and Output: 01/30/18 01/31/18 18:59 06:59 Output Total 1400 Balance -1400 - Medications Medications: Current Medications Albuterol/Ipratropium (Duoneb 3 Mg/0.5 Mg (3 Ml) Ud) 3 ml INH RQ6 [facility] Last Admin: 01/30/18 20:14 Dose: 3 ml Enoxaparin Sodium (Lovenox) 40 mg SC DAILY [facility] Last Admin: 01/30/18 10:24 Dose: 40 mg Guaifenesin (Robitussin) 200 mg PO Q4H PRN PRN Reason: Cough and congestion Last Admin: 01/26/18 10:08 Dose: 200 mg Ceftriaxone Sodium 1 gm/ (Sodium Chloride) 100 mls @ 100 mls/hr IVPB DAILY [facility]; Protocol Last Admin: 01/30/18 10:25 Dose: 100 mls/hr Methylprednisolone (Solu-Medrol) 40 mg IV Q8 [facility] Last Admin: 01/30/18 21:48 Dose: 40 mg - Labs Labs: 01/30/18 08:25 01/30/18 08:25 PT 14.2 SECONDS (9.7-12.2) H 01/23/18 20:06 INR 1.3 01/23/18 20:06 APTT 32 SECONDS (21-34) 01/23/18 20:06
[2018-01-31] MEDS: Albuterol-Ipratrop 3 mg / 0.5 (3 ml) UD INH SCH ×4 (02:02→20:57)
--- NOTE | 2018-01-31 02:27 | PN ---
DATE: 01/30/2018 SUBJECTIVE: The patient is status post biopsy of the lung mass, and he is waiting for biopsy, and the patient is also for home oxygen and for discharge once oxygen is arranged. Afebrile. Less short of breath, less cough, less wheezing. PHYSICAL EXAMINATION: VITAL SIGNS: Blood pressure 107/71, pulse 99, respiratory rate 20, temperature 97.5. LUNGS: Decreased air entry. Possibly rhonchi. CARDIOVASCULAR SYSTEM: S1 and S2 regular. ABDOMEN: Soft. ASSESSMENT: 1. Exacerbation of chronic obstructive pulmonary disease. 2. Lung masses, pending biopsy, most likely malignancy. PLAN: Continue to monitor the patient for home oxygen. Gavin Samuels MD
--- NOTE | 2018-01-31 02:42 | PN ---
DATE: 01/30/2018 SUBJECTIVE: Parker is less short of breath, less cough, less wheezing. Biopsy is still pending. His home oxygen is being arranged. He is feeling better. PHYSICAL EXAMINATION: VITAL SIGNS: Blood pressure is 117/74, pulse 115, respiratory rate 20, temperature 99. LUNGS: Decreased air entry. Positive rhonchi. CARDIOVASCULAR SYSTEM: S1 and S2, regular. ASSESSMENT: 1. Exacerbation of chronic obstructive pulmonary disease. 2. Lung mass, pending biopsy. PLAN: Continue to monitor the patient. Gavin Samuels MD
[2018-01-31] MEDS: MethylPREDNISolone 40 mg Vial IV SCH ×3 (05:51→21:58)
[2018-01-31] MEDS: Enoxaparin 40 mg Syringe SC SCH (09:07)
--- NOTE | 2018-01-31 19:12 | CP.PCM.PN ---
Subjective - Subjective Subjective: dictated Objective - Vital Signs/Intake and Output Vital Signs (last 24 hours): Temp Pulse Resp BP Pulse Ox 98.2 F 109 H 18 108/74 96 01/31/18 15:34 01/31/18 15:34 01/31/18 15:34 01/31/18 15:34 01/31/18 15:34 Intake and Output: 01/31/18 02/01/18 18:59 06:59 Intake Total 600 Output Total 800 Balance -200 - Medications Medications: Current Medications Albuterol/Ipratropium (Duoneb 3 Mg/0.5 Mg (3 Ml) Ud) 3 ml INH RQ6 [facility] Last Admin: 01/31/18 13:49 Dose: 3 ml Enoxaparin Sodium (Lovenox) 40 mg SC DAILY [facility] Last Admin: 01/31/18 09:07 Dose: 40 mg Guaifenesin (Robitussin) 200 mg PO Q4H PRN PRN Reason: Cough and congestion Last Admin: 01/26/18 10:08 Dose: 200 mg Ceftriaxone Sodium 1 gm/ (Sodium Chloride) 100 mls @ 100 mls/hr IVPB DAILY [facility]; Protocol Last Admin: 01/31/18 09:08 Dose: 100 mls/hr Methylprednisolone (Solu-Medrol) 40 mg IV Q8 [facility] Last Admin: 01/31/18 13:31 Dose: 40 mg - Labs Labs: 01/30/18 08:25 01/30/18 08:25 PT 14.2 SECONDS (9.7-12.2) H 01/23/18 20:06 INR 1.3 01/23/18 20:06 APTT 32 SECONDS (21-34) 01/23/18 20:06
[2018-02-01] MEDS: Albuterol-Ipratrop 3 mg / 0.5 (3 ml) UD INH SCH ×4 (01:25→19:19)
[2018-02-01] MEDS: MethylPREDNISolone 40 mg Vial IV SCH ×3 (05:48→21:49)
[2018-02-01] MEDS: Enoxaparin 40 mg Syringe SC SCH (09:59)
--- NOTE | 2018-02-01 13:16 | CP.PCM.PN ---
Subjective - Subjective Subjective: dictated Objective - Vital Signs/Intake and Output Vital Signs (last 24 hours): Temp Pulse Resp BP Pulse Ox 98.0 F 90 18 127/87 99 02/01/18 07:15 02/01/18 07:15 02/01/18 07:15 02/01/18 07:15 02/01/18 07:15 Intake and Output: 02/01/18 02/01/18 06:59 18:59 Intake Total 20 Output Total 800 Balance -780 - Medications Medications: Current Medications Albuterol/Ipratropium (Duoneb 3 Mg/0.5 Mg (3 Ml) Ud) 3 ml INH RQ6 [facility] Last Admin: 02/01/18 01:25 Dose: Not Given Enoxaparin Sodium (Lovenox) 40 mg SC DAILY [facility] Last Admin: 02/01/18 09:59 Dose: 40 mg Guaifenesin (Robitussin) 200 mg PO Q4H PRN PRN Reason: Cough and congestion Last Admin: 01/26/18 10:08 Dose: 200 mg Ceftriaxone Sodium 1 gm/ (Sodium Chloride) 100 mls @ 100 mls/hr IVPB DAILY [facility]; Protocol Last Admin: 02/01/18 09:59 Dose: 100 mls/hr Methylprednisolone (Solu-Medrol) 40 mg IV Q8 [facility] Last Admin: 02/01/18 13:13 Dose: 40 mg - Labs Labs: 01/30/18 08:25 01/30/18 08:25 PT 14.2 SECONDS (9.7-12.2) H 01/23/18 20:06 INR 1.3 01/23/18 20:06 APTT 32 SECONDS (21-34) 01/23/18 20:06
--- NOTE | 2018-02-01 13:47 | CP.PCM.PN ---
Subjective - Date & Time of Evaluation Date of Evaluation: 02/01/18 Time of Evaluation: 13:44 - Subjective Subjective: Pulmonary Follow up, Covering Dr Cm The patient was Seen/interviewed and examined by me at the bedside, Medical records reviewed and Management issues were discussed and formulated with the house staff. Events reviewed Patient comfortable, NAD Afebrile Adequate saturation 96-99% on 2L nasal cannula No chest pain, Less Dyspnea S/P Ct guided Right lung mass biopsy F/u pathology report Continue nebulizer and steroids Objective - Vital Signs/Intake and Output Vital Signs (last 24 hours): Temp Pulse Resp BP Pulse Ox 98.0 F 90 18 127/87 99 02/01/18 07:15 02/01/18 07:15 02/01/18 07:15 02/01/18 07:15 02/01/18 07:15 Intake and Output: 02/01/18 02/01/18 06:59 18:59 Intake Total 20 Output Total 800 Balance -780 - Medications Medications: Current Medications Albuterol/Ipratropium (Duoneb 3 Mg/0.5 Mg (3 Ml) Ud) 3 ml INH RQ6 [facility] Last Admin: 02/01/18 01:25 Dose: Not Given Enoxaparin Sodium (Lovenox) 40 mg SC DAILY [facility] Last Admin: 02/01/18 09:59 Dose: 40 mg Guaifenesin (Robitussin) 200 mg PO Q4H PRN PRN Reason: Cough and congestion Last Admin: 01/26/18 10:08 Dose: 200 mg Ceftriaxone Sodium 1 gm/ (Sodium Chloride) 100 mls @ 100 mls/hr IVPB DAILY [facility]; Protocol Last Admin: 02/01/18 09:59 Dose: 100 mls/hr Methylprednisolone (Solu-Medrol) 40 mg IV Q8 [facility] Last Admin: 02/01/18 13:13 Dose: 40 mg - Labs Labs: 01/30/18 08:25 01/30/18 08:25 PT 14.2 SECONDS (9.7-12.2) H 01/23/18 20:06 INR 1.3 01/23/18 20:06 APTT 32 SECONDS (21-34) 01/23/18 20:06
--- NOTE | 2018-02-02 01:36 | PN ---
DATE: 02/01/2018 SUBJECTIVE: The patient is waiting for home oxygen. He feels short of breath. He is hypoxic off the oxygen. He is afebrile. Less cough, less wheezing. Pending lung biopsy. PHYSICAL EXAMINATION VITAL SIGNS: BP 114/72, pulse 111, respiratory rate 18, temperature 98.9. LUNGS: Decreased air entry. Positive rhonchi. CARDIOVASCULAR SYSTEM: S1 and S2 regular. ABDOMEN: Soft. ASSESSMENT: 1. Exacerbation of chronic obstructive pulmonary disease. 2. Lung mass, pending biopsy. 3. Hypoxia. PLAN: Monitor the patient. Home oxygen. Once home oxygen is arranged, he is for discharge. Gavin Samuels MD
[2018-02-02] MEDS: Albuterol-Ipratrop 3 mg / 0.5 (3 ml) UD INH SCH ×2 (02:50→07:45)
[2018-02-02] MEDS: MethylPREDNISolone 40 mg Vial IV SCH ×2 (05:23→13:58)
[2018-02-02] MEDS: Enoxaparin 40 mg Syringe SC SCH (10:26)
[2018-02-02 11:14] LABS: BASO % 0.1 % (0.0-2.0); HEMOGLOBIN 13.3 g/dL (12.0-18.0); LYMPH # 0.3 K/uL (1.0-4.3); LYMPH % 1.6 % (20.0-40.0); MEAN CELL VOLUME 83.6 fL (80.0-94.0); MEAN CORPUSCULAR HGB CONC 32.3 g/dL (33.0-37.0); MEAN PLATELET VOLUME 7.6 fL (7.2-11.7); MONO # 0.6 K/uL (0.0-0.8); MONO % 3.9 % (0.0-10.0); NEUT % 94.4 % (50.0-75.0); PLATELET COUNT 248 K/uL (130-400); RBC 4.92 Mil/uL (4.40-5.90); RED CELL DISTRIBUTION WIDTH 16.6 % (11.5-14.5); WHITE BLOOD COUNT 15.9 K/uL (4.8-10.8)
[2018-02-02 11:22] LABS: BLOOD UREA NITROGEN 23 mg/dL (9-20); CALCIUM 8.5 mg/dl (8.6-10.4); GFR NON-AFRICAN AMERICAN > 60
[2018-02-02 11:39] LABS: LYMPHOCYTE 1 % (20-40); MONOCYTE 4 % (0-10); NEUTROPHIL 95 % (50-75); PLATELET ESTIMATE NORMAL (NORMAL); TOTAL CELLS COUNTED 100
[2018-02-02 11:41] LABS: ANISOCYTOSIS SLIGHT; HYPOCHROMIC SLIGHT; POIKILOCYTOSIS SLIGHT
--- NOTE | 2018-02-02 17:37 | CP.PCM.PN ---
Subjective - Date & Time of Evaluation Date of Evaluation: 02/02/18 Time of Evaluation: 11:00 - Subjective Subjective: Pateint seen today, awake, alert, ox3, denies any chest pain, cough or congestion, sob improved, able to ambulate wiht o2 and spo2 96% , wants to go home awaiting home o2 vss and labs - reviewed - stable , No overnight events reported by RN Objective - Vital Signs/Intake and Output Vital Signs (last 24 hours): Temp Pulse Resp BP Pulse Ox 97.9 F 91 H 18 109/71 97 02/02/18 07:00 02/02/18 07:00 02/02/18 07:00 02/02/18 07:00 02/02/18 07:00 Intake and Output: 02/02/18 02/02/18 06:59 18:59 Intake Total 20 Output Total 800 Balance -780 - Medications Medications: Current Medications Enoxaparin Sodium (Lovenox) 40 mg SC DAILY [facility] Last Admin: 02/02/18 10:26 Dose: 40 mg Guaifenesin (Robitussin) 200 mg PO Q4H PRN PRN Reason: Cough and congestion Last Admin: 01/26/18 10:08 Dose: 200 mg Ceftriaxone Sodium 1 gm/ (Sodium Chloride) 100 mls @ 100 mls/hr IVPB DAILY [facility]; Protocol Last Admin: 02/02/18 10:26 Dose: 100 mls/hr Methylprednisolone (Solu-Medrol) 40 mg IV Q8 [facility] Last Admin: 02/02/18 13:58 Dose: 40 mg - Labs Labs: 02/02/18 10:58 02/02/18 10:58 PT 14.2 SECONDS (9.7-12.2) H 01/23/18 20:06 INR 1.3 01/23/18 20:06 APTT 32 SECONDS (21-34) 01/23/18 20:06 Assessment and Plan - Assessment and Plan (Free Text) Assessment: A/P 67-year-old male with long history off smoking presented admitted with shortness of breath and cough for the last one week. CAT scan of the chest showed multiple heaton ball nodules/masses. s/p CT guided biopsy and pathology result - pending Dr. Workman on hem/onc- consult seen by Dr. Cm today, cleared for discharge home from pulmonary stand point and f/u in his office and continue , prednisone and LABA/LAMA and home oxygen as per Anupama [facility] oxygen ready fo rhome delivery and o2 tank available at bedside for transportation D/w Dr. Samuels cleared for discharge home today and f/u with Dr. Samuels offic ein 1 week Discharge plan discussed with patient who understands and agrees with plan Patient counselled ref, quit smoking and no smoking while on o2 , who verbalized understanding Joanne davis stated she will stay with patient to monitor closely As per DEVANG Altman she spoke to POA in details regarding o2 and safety at home
[2018-02-02 17:51] VITALS: BP 111/78; PULSE 107; RESP 20; TEMP 98.7; O2SAT 96
--- NOTE | 2018-02-02 21:05 | CP.PCM.DIS ---
Provider - Provider Date of Admission: 01/23/18 23:35 Attending physician: Gavin Samuels MD Consults: 01/23/18 23:28 Pulmonology Consult Stat Comment: Consulting Provider: Baldomero Cm Consulting Physician: Baldomero Cm Reason for Consult: copd 01/23/18 23:29 Cardiology Consult Stat Comment: Consulting Provider: Pepe Julio Consulting Physician: Pepe Julio Reason for Consult: dyspnea Pulmonology Consult Stat Comment: Consulting Provider: Baldomero Cm Consulting Physician: Baldomero Cm Reason for Consult: mass 01/25/18 15:24 Hematology Oncology Consult Routine Comment: Consulting Provider: Jana Wallace Consulting Physician: Jana Wallace Reason for Consult: malignancy 01/26/18 15:37 Physician Consult Routine Comment: Consulting Provider: Jaun Short Consulting Physician: Jaun Short Reason for Consult: lung mass biopsy Additional Comments: New lung masses Hospital Course - Lab Results Lab Results: Micro Results 01/23/18 20:15 Blood Blood Culture - Final NO GROWTH AFTER 5 DAYS 01/23/18 20:15 Blood Gram Stain - Final TEST NOT PERFORMED 01/23/18 19:50 Blood Blood Culture - Final NO GROWTH AFTER 5 DAYS 01/23/18 19:50 Blood Gram Stain - Final TEST NOT PERFORMED Most Recent Lab Values WBC 15.9 K/uL (4.8-10.8) H 02/02/18 10:58 RBC 4.92 Mil/uL (4.40-5.90) 02/02/18 10:58 Hgb 13.3 g/dL (12.0-18.0) 02/02/18 10:58 Hct 41.1 % (35.0-51.0) 02/02/18 10:58 MCV 83.6 fL (80.0-94.0) 02/02/18 10:58 MCH 27.0 pg (27.0-31.0) 02/02/18 10:58 MCHC 32.3 g/dL (33.0-37.0) L 02/02/18 10:58 RDW 16.6 % (11.5-14.5) H 02/02/18 10:58 Plt Count 248 K/uL (130-400) 02/02/18 10:58 MPV 7.6 fL (7.2-11.7) 02/02/18 10:58 Neut % (Auto) 94.4 % (50.0-75.0) H 02/02/18 10:58 Lymph % (Auto) 1.6 % (20.0-40.0) L 02/02/18 10:58 Rock % (Auto) 3.9 % (0.0-10.0) 02/02/18 10:58 Eos % (Auto) 0.0 % (0.0-4.0) 02/02/18 10:58 Baso % (Auto) 0.1 % (0.0-2.0) 02/02/18 10:58 Neut # (Auto) 15.0 K/uL (1.8-7.0) H 02/02/18 10:58 Lymph # (Auto) 0.3 K/uL (1.0-4.3) L 02/02/18 10:58 Rock # (Auto) 0.6 K/uL (0.0-0.8) 02/02/18 10:58 Eos # (Auto) 0.0 K/uL (0.0-0.7) 02/02/18 10:58 Baso # (Auto) 0.0 K/uL (0.0-0.2) 02/02/18 10:58 Neutrophils % (Manual) 95 % (50-75) H 02/02/18 10:58 Lymphocytes % (Manual) 1 % (20-40) L 02/02/18 10:58 Monocytes % (Manual) 4 % (0-10) 02/02/18 10:58 Platelet Estimate Normal (NORMAL) 02/02/18 10:58 Polychromasia Slight 01/30/18 08:25 Hypochromasia (manual) Slight 02/02/18 10:58 Poikilocytosis (manual Slight 02/02/18 10:58 Anisocytosis (manual) Slight 02/02/18 10:58 PT 14.2 SECONDS (9.7-12.2) H 01/23/18 20:06 INR 1.3 01/23/18 20:06 APTT 32 SECONDS (21-34) 01/23/18 20:06 Puncture Site Rra 01/24/18 14:16 pCO2 48 mm/Hg (35-45) H 01/24/18 14:16 pO2 75 mm/Hg (80-100) L 01/24/18 14:16 HCO3 30.0 mmol/L (21-28) H 01/24/18 14:16 ABG pH 7.43 (7.35-7.45) 01/24/18 14:16 ABG Total CO2 33.4 mmol/L (22-28) H 01/24/18 14:16 ABG O2 Saturation 97.1 % (95-98) 01/24/18 14:16 ABG Base Excess 6.6 mmol/L (-2.0-3.0) H 01/24/18 14:16 ABG Hemoglobin 11.5 g/dL (11.7-17.4) L 01/24/18 14:16 ABG Carboxyhemoglobin 1.9 % (0.5-1.5) H 01/24/18 14:16 POC ABG HHb (Measured) 2.8 % (0.0-5.0) 01/24/18 14:16 ABG Methemoglobin 0.7 % (0.0-3.0) 01/24/18 14:16 Kei Test Pos 01/24/18 14:16 ABG Potassium 3.7 mmol/L (3.6-5.2) 01/23/18 20:26 A-a O2 Difference 65.0 mm/Hg 01/24/18 14:16 Respiratory Index 0.9 01/24/18 14:16 Hgb O2 Saturation 94.7 % (95.0-98.0) L 01/24/18 14:16 Sodium 137.0 mmol/l (132-148) 01/23/18 20:26 Chloride 108.0 mmol/L (98-107) H 01/23/18 20:26 Glucose 122 mg/dl (75-110) H 01/23/18 20:26 Lactate 0.9 mmol/L (0.7-2.1) 01/23/18 20:26 Liter Flow 2.0 01/24/18 14:16 FiO2 28.0 % 01/24/18 14:16 Sodium 131 mmol/L (132-148) L 02/02/18 10:58 Potassium 4.4 mmol/L (3.6-5.2) 02/02/18 10:58 Chloride 91 mmol/L (98-107) L 02/02/18 10:58 Carbon Dioxide 31 mmol/L (22-30) H 02/02/18 10:58 Anion Gap 13 (10-20) 02/02/18 10:58 BUN 23 mg/dL (9-20) H 02/02/18 10:58 Creatinine 0.7 mg/dL (0.8-1.5) L 02/02/18 10:58 Est GFR ( Amer) > 60 02/02/18 10:58 Est GFR (Non-Af Amer) > 60 02/02/18 10:58 Random Glucose 263 mg/dL (75-110) H 02/02/18 10:58 Calcium 8.5 mg/dl (8.6-10.4) L 02/02/18 10:58 Magnesium 2.4 mg/dL (1.6-2.3) H 01/24/18 07:12 Total Bilirubin 0.5 mg/dL (0.2-1.3) 01/24/18 07:12 AST 16 U/L (17-59) L D 01/24/18 07:12 ALT 18 U/L (21-72) L 01/24/18 07:12 Alkaline Phosphatase 70 U/L (38-126) 01/24/18 07:12 Troponin I < 0.0120 ng/mL (0.00-0.120) 01/23/18 20:06 NT-Pro-B Natriuret Pep 89.0 pg/mL (0-900) 01/23/18 20:06 Total Protein 7.5 g/dL (6.3-8.3) 01/24/18 07:12 Albumin 3.3 g/dL (3.5-5.0) L 01/24/18 07:12 Globulin 4.2 gm/dL (2.2-3.9) H 01/24/18 07:12 Albumin/Globulin Ratio 0.8 (1.0-2.1) L 01/24/18 07:12 Carcinoembryonic Ag 8.4 ng/mL (0-3.0) H 01/27/18 07:32 Arterial Blood Potassium 3.7 mmol/L (3.6-5.2) 01/23/18 20:26 Urine Color Yellow (YELLOW) 01/23/18 21:15 Urine Clarity Hazy (Clear) 01/23/18 21:15 Urine pH 5.0 (5.0-8.0) 01/23/18 21:15 Ur Specific [place] 1.018 (1.003-1.030) 01/23/18 21:15 Urine Protein Negative mg/dL (NEGATIVE) 01/23/18 21:15 Urine Glucose (UA) Normal mg/dL (Normal) 01/23/18 21:15 Urine Ketones Trace mg/dL (NEGATIVE) 01/23/18 21:15 Urine Blood Negative (NEGATIVE) 01/23/18 21:15 Urine Nitrate Negative (NEGATIVE) 01/23/18 21:15 Urine Bilirubin Negative (NEGATIVE) 01/23/18 21:15 Urine Urobilinogen 4.0 mg/dL (0.2-1.0) 01/23/18 21:15 Ur Leukocyte Esterase Neg [place]/uL (Negative) 01/23/18 21:15 Urine WBC (Auto) 1 /hpf (0-5) 01/23/18 21:15 Urine RBC (Auto) 2 /hpf (0-3) 01/23/18 21:15 Ur Squamous Epith Cells < 1 /hpf (0-5) 01/23/18 21:15 Urine Bacteria Rare (<OCC) 01/23/18 21:15 Discharge Exam - Head Exam Head Exam: ATRAUMATIC, NORMOCEPHALIC Discharge Plan - Discharge Medications Prescriptions: predniSONE [Prednisone] 40 mg PO DAILY #20 tab predniSONE [Prednisone] 20 mg PO DAILY #5 tab predniSONE [predniSONE Tab] 10 mg PO DAILY #10 tab Tiotropium [Spiriva] 18 mcg IH DAILY 30 Days #30 cap Budesonide/Formoterol Fumarate [Symbicort] 1 aer IH Q12 #1 aer Albuterol HFA [Ventolin HFA 90 mcg/actuation (8 g)] 2 puff IH Q6 #2 inhaler - Follow Up Plan Condition: GUARDED Disposition: HOME/ ROUTINE Instructions: Needle Biopsy of the Lung and Pleura, Heart Healthy Diet, Shortness of Breath (Dyspnea) (DC), Oxygen Therapy, Adult (DC), Multiple Pulmonary Nodules, Albuterol, Budesonide and Formoterol, Prednisone, Tiotropium, Tachycardia (DC) Additional Instructions: Please follow up with Dr. Samuels office in 1 week Please follow up with Dr. Workman office in tomorrow follow up visit ( result and further testing ) Please follow up with Dr. Cm office in 2 weeks ( f/u visit) continue medication as per med. rec. PLEASE USE OXYGEN 2L/MIN NO SMOKING OR NEARBY FIRE WHILE USING OXYGEN PLEASE DO NOT ALLOW ANY FAMILY MEMBER OR FRIENDS TO SMOKE IN THE HOUSE WHILE ON OXYGEN Referrals: Baldomero Cm MD [Staff Provider] - Gavin Samuels MD [Staff Provider] - Jana Wallace MD [Staff Provider] -
--- NOTE | 2018-02-07 02:49 | DS ---
DISCHARGE DIAGNOSES: 1. New-onset chronic obstructive pulmonary disease. 2. Lung masses, rule out malignant neoplasm of the lung, primary versus secondary. HISTORY OF PRESENT ILLNESS: This is a 67-year-old male chronic heavy smoker with not being actively followed up any clinic and is usual state of health. He is ambulatory and independent in activities of daily living. He came in because of shortness of breath, cough, congestion, dyspnea at exertion, dyspnea at rest. The patient was admitted with a flu. The patient underwent evaluation. He was found to have lung masses. Biopsy was done and after biopsy was done, the patient was found to be hypoxic. Home oxygen was arranged, and the patient was discharged home with outpatient followup. PHYSICAL EXAMINATION: VITAL SIGNS: Blood pressure 111/78, pulse 107, respiratory rate 20, temperature 98.7. LUNGS: Decreased air entry. Positive rhonchi. CARDIOVASCULAR SYSTEM: S1 and S2 are regular. ABDOMEN: Soft. ASSESSMENT: 1. Chronic obstructive pulmonary disease. 2. Lung mass, rule out metastatic disease. PLAN: Continue current medication. Monitor the patient. Gavin Samuels MD
== END 2018-02-02 18:41 | disposition home or self-care (01) | DRG 181 ==
LOC: C.ER 19:04 → C.6T 23:35
PROVIDERS: ADMIT Internal Medicine; ATTEND Internal Medicine
DX: C34.11 Malignant neoplasm of upper lobe, right bronchus or lung (principal); C78.02 Secondary malignant neoplasm of left lung; J44.1 Chronic obstructive pulmonary disease with (acute) exacerbation; F84.0 Autistic disorder; R09.02 Hypoxemia; F17.210 Nicotine dependence, cigarettes, uncomplicated; E86.0 Dehydration

== ENCOUNTER 2018-02-18 21:48 | Inpatient (IN) | payer MEDICARE ==
[2018-02-18 21:48] VITALS: BMI 23.6
--- NOTE | 2018-02-18 22:26 | C.PDOC ---
History Of Present Illness 67 year old male presents to the ER feeling SOB, ran out of his home oxygen. Patient has a Hx of stage 4 lung ca, scheduled to start hospice tomorrow. Denies fever or chills. Chief Complaint (Nursing): Shortness Of Breath History Per: Patient History/Exam Limitations: no limitations Onset/Duration Of Symptoms: Hrs Current Symptoms Are (Timing): Still Present Current Respiratory Medications: See Home Med List Associated Symptoms: denies: Fever, Chills Recent travel outside of the [place]: No Past Medical History Reviewed: Historical Data, Nursing Documentation, Vital Signs Vital Signs: Last Vital Signs Temp 98.2 F 02/18/18 22:06 Pulse 118 H 02/18/18 22:06 Resp 24 02/18/18 22:06 BP 116/78 02/18/18 22:06 Pulse Ox 97 02/18/18 22:06 - Medical History PMH: Asthma, Emphysema, Malignancy (lung cancer) Denies: Chronic Kidney Disease - [facility] COMPUTERIZED TOMOGRAPHY (CT SCAN) OF BILATERAL LUNGS (01/23/18) EXCISION OF RIGHT UPPER LUNG LOBE, PERC APPROACH, DIAGN (01/23/18) Family History: States: Unknown Family Hx - Social History Hx Alcohol Use: No Hx Substance Use: No - Immunization History Hx Tetanus Toxoid Vaccination: No Hx Influenza Vaccination: No Hx Pneumococcal Vaccination: No Review Of Systems Constitutional: Negative for: Fever, Chills Respiratory: Positive for: Shortness of Breath Gastrointestinal: Negative for: Nausea, Vomiting Neurological: Negative for: Weakness, Numbness Physical Exam - Physical Exam Appears: Non-toxic, No Acute Distress, Other (Alert, Conscious) Skin: Normal Color, Warm, Dry Head: Atraumatic, Normacephalic Eye(s): bilateral: Normal Inspection Oral Mucosa: Moist Neck: Normal, Supple Chest: Symmetrical, No Tenderness Cardiovascular: Rhythm Regular Respiratory: Normal Breath Sounds, No Rales, No Rhonchi, No Wheezing Gastrointestinal/Abdominal: Soft, No Tenderness Neurological/Psych: Oriented x3, Normal Speech ED Course And Treatment O2 Sat by Pulse Oximetry: 97 (Room air) Pulse Ox Interpretation: Normal Disposition Discussed With : Gavin Samuels Doctor Will See Patient In The: Hospital Counseled Patient/Family Regarding: Diagnosis - Disposition Disposition: HOSPITALIZED Disposition Time: 23:04 Condition: STABLE Forms: [facility] (Y[place]i) - POA Present On Arrival: None - Clinical Impression Clinical Impression: Cancer of lung, Oxygen dependent - Scribe Statement The provider has reviewed the documentation as recorded by the Scribe Lewis Cardenas All medical record entries made by the Scribe were at my direction and personally dictated by me. I have reviewed the chart and agree that the record accurately reflects my personal performance of the history, physical exam, medical decision making, and the department course for this patient. I have also personally directed, reviewed, and agree with the discharge instructions and disposition.
[2018-02-19] MEDS ORDERED: Albuterol HFA 90 mcg/actuation (8 g) IH PRN (05:07)
[2018-02-19] MEDS: Albuterol-Ipratrop 3 mg / 0.5 (3 ml) UD INH SCH ×4 (08:02→19:25)
[2018-02-19] MEDS: Fluticasone-Vilanterol 100/25mcg Diskus INH SCH (08:03)
[2018-02-19] MEDS: Enoxaparin 40 mg Syringe SC SCH (09:08)
--- NOTE | 2018-02-19 10:35 | CP.PCM.CON ---
History of Present Illness - History of Present Illness History of Present Illness: Palliative consult requested by Doctor Samuels for patient's support and Code status Patient is a 67 yo [place] male admitted from home with severe SOB after he run our of his O2 supply at home. Patient has Stage IV lung cancer and was to be evaluated by Hospice Care at home on 02/19/2018. Once in ED, patient's condition slightly improved with O2 on. . Patient transferred to floor and is awaiting hospice evaluation. Neb. Tx and lovenox on board. There is no blood work for review PMH: Lung CA stage IV, asthma, right upper lobe excision for diagnostic purposes Soc. Hx: single, lives at home with niece, has no children, used to smoke 1 ppd for many years Fam. Hx: Unknown Review of Systems - Constitutional Constitutional: Fatigue, Malaise, Weakness - EENT Eyes: absent: As Per HPI, Blind Spots, Blurred Vision, Change in Vision, Decreased Night Vision, Diplopia, Discharge, Dry Eye, Exophthalmos, Floaters, Irritation, Itchy Eyes, Loss of Peripheral Vision, Pain, Photophobia, Requires Corrective Lenses, Sees Flashes, Spots in Vision, Tunnel Vision, Other Visual Disturbances, Loss of Vision, Other Ears: absent: As Per HPI, Decreased Hearing, Ear Discharge, Ear Pain, Tinnitus, Abnormal Hearing, Disequilibrium, Dizziness, Other Additional comments: missing teeth, - Cardiovascular Cardiovascular: Dyspnea, Dyspnea on Exertion - Respiratory Respiratory: Cough, Dyspnea, Dyspnea on Exertion, Wheezing, Chest Congestion - Gastrointestinal Gastrointestinal: absent: As Per HPI, Abdominal Pain, Belching, Bloating, Change in Bowel Habits, Change in Stool Character, Coffee Ground Emesis, Constipation, Cramping, Diarrhea, Dyspepsia, Dysphagia, Early Satiety, Excessive Flatus, Fecal Incontinence, Heartburn, Hematemesis, Hematochezia, Loose Stools, Melena, Nausea, Odynophagia, Temesmus, Vomiting, Other - Genitourinary Genitourinary: Urinary Incontinence - Musculoskeletal Musculoskeletal: Muscle Weakness - Integumentary Integumentary: absent: As Per HPI, Acne, Alopecia, Bleeding Lesions, Change in Hair, Change in Nails, Change in Pigmentation, Changing Lesions, Dry Skin, Erythema, Furuncle, Hirsutism, Lesions, New Lesions, Non-Healing Lesions, Photosensitivity, Pruritus, Rash, Skin Pain, Skin Ulcer, Sores, Striae, Swelling, Unusual Bruising, Wounds, Jaundice, Other - Neurological Neurological: Weakness - Psychiatric Psychiatric: absent: As Per HPI, Abnormal Sleep Pattern, Anhedonia, Anxiety, Auditory Hallucinations, Behavioral Changes, Change in Appetite, Change in Libido, Confusion, Depression, Difficulty Concentrating, Hallucinations, Brittany icidal Ideation, Hopelessness, Irritability, Memory Loss, Mood Swings, Panic Attacks, Paranoia, Suicidal Ideation, Visual Hallucinations, Tactile Hallucinations, Other - Endocrine Endocrine: absent: As Per HPI, Change in Body Appearance, Change in Libido, Cold Intolorance, Deepening of Voice, Excessive Sweating, Fatigue, Flushing, Heat Intolorance, Increase in Ring/Shoe/Hat Size, Palpitations, Polydipsia, Polyphagia, Polyuria, Other - Hematologic/Lymphatic Hematologic: absent: As Per HPI, Easy Bleeding, Easy Bruising, Lymphadenopathy, Other Past Patient History - Past Medical History & Family History Past Medical History?: Yes - Past Social History Smoking Status: Heavy Smoker > 10 Cigarettes Daily - CARDIAC Hx Cardiac Disorders: No - PULMONARY Hx Asthma: Yes Hx Emphysema: Yes - NEUROLOGICAL Hx Neurological Disorder: No - HEENT Hx HEENT Problems: No - RENAL Hx Chronic Kidney Disease: No - ENDOCRINE/METABOLIC Hx Endocrine Disorders: No - HEMATOLOGICAL/ONCOLOGICAL Hx Blood Disorders: No - INTEGUMENTARY Hx Dermatological Problems: No - MUSCULOSKELETAL/RHEUMATOLOGICAL Hx Musculoskeletal Disorders: No Hx Falls: No - GASTROINTESTINAL Hx Gastrointestinal Disorders: No - GENITOURINARY/GYNECOLOGICAL Hx Genitourinary Disorders: No - PSYCHIATRIC Hx Substance Use: No - SURGICAL HISTORY Hx Surgeries: No - ANESTHESIA Hx Anesthesia: No Meds Allergies/Adverse Reactions: Allergies Allergy/AdvReac Type Severity Reaction Status Date / Time No Known Allergies Allergy Verified 01/23/18 19:16 - Medications Medications: Current Medications Acetaminophen (Tylenol 325mg Tab) 650 mg PO Q4 PRN PRN Reason: Pain, Mild (1-3) Albuterol (Ventolin Hfa 90 Mcg/Actuation (8 G)) 2 puff IH Q6 PRN PRN Reason: Shortness of Breath Albuterol/Ipratropium (Duoneb 3 Mg/0.5 Mg (3 Ml) Ud) 3 ml INH RQID [facility] Last Admin: 02/19/18 08:02 Dose: 3 ml Enoxaparin Sodium (Lovenox) 40 mg SC DAILY [facility] Last Admin: 02/19/18 09:08 Dose: 40 mg Famotidine (Pepcid) 20 mg PO BID [facility] Last Admin: 02/19/18 09:08 Dose: 20 mg Fluticasone/Vilanterol (Breo Ellipta 100-25 Mcg Inh) 1 puff INH RQ24 [facility] Last Admin: 02/19/18 08:03 Dose: Not Given Prednisone (Prednisone Tab) 20 mg PO DAILY [facility] Last Admin: 02/19/18 09:08 Dose: 20 mg Tiotropium [place] (Spiriva) 18 mcg IH DAILY [facility] Physical Exam - Constitutional Appears: Chronically Ill - Head Exam Head Exam: ATRAUMATIC, NORMAL INSPECTION, NORMOCEPHALIC - Eye Exam Eye Exam: EOMI, Normal appearance, PERRL Pupil Exam: NORMAL ACCOMODATION, PERRL - ENT Exam ENT Exam: Mucous Membranes Dry Additional comments: missing teeth, poor dental hygiene - Neck Exam Neck exam: Positive for: Normal Inspection - Respiratory Exam Respiratory Exam: Accessory Muscle Use, Decreased Breath Sounds, Prolonged Expiratory Phase, Rales, Rhonchi - Cardiovascular Exam Cardiovascular Exam: Tachycardia - GI/Abdominal Exam GI & Abdominal Exam: Normal Bowel Sounds, Soft - Rectal Exam Rectal Exam: Deferred - Extremities Exam Extremities exam: Positive for: normal inspection, pedal edema - Back Exam Back exam: NORMAL INSPECTION - Neurological Exam Neurological exam: Alert, Oriented x3 - Psychiatric Exam Psychiatric exam: Normal Affect - Skin Skin Exam: Dry, Intact, Pallor Results - Vital Signs Recent Vital Signs: Last Vital Signs Temp 98.2 F 02/19/18 07:00 Pulse 110 H 02/19/18 07:00 Resp 20 02/19/18 07:00 BP 119/81 02/19/18 07:00 Pulse Ox 95 02/19/18 07:42 Assessment & Plan - Assessment and Plan (Free Text) Assessment: Palliative consult There was no Advance Directive on chart, PPS 20% I reviewed Medical records and examined and interviewed patient in the bed Patient is alert, oriented X 3, looking chronically ill in moderate respiratory distress. Skin is pale and dry, sclera are pale, poor skin turgor. Patient looks unkept, with messy hair and poor teeth hygiene. Voice is harsh and speech is muffled, makes it difficult to understand. Patient is unable to speak in more than 1-2 words sentences due to SOB. Breaths sounds are diminished with a lot of ronchi, rales and congestion. There is some dry cough. O2 Sat 97 % with NC. HR 110. Abdomen soft, reports fair appetite, incontinent of urine, uses dapper. There is mild pedal edema present. patient reports being able to ambulate short distances with support. I reviewed with patient his clinical presentation and elicited his understanding about his diagnosis. patient knew he had a lung cancer but was not able to provide more Hx about time of diagnosis and treatment. I evaluated his understanding about Hospice Care. Patient at first did not understand it, but after further information what as Hospice all about, he stated understanding. I mentioned that under Hospice Care, all further aggressive interventions will stop, including CPR and Intubation, and natural will be promoted. patient stated understanding. POLST introduced and signed by patient. Patient stated understanding that his condition was not curable and he knew his was pending. Patient seemed at peace with it saying " one has to day some day". Patient has not regrets regarding long history of smoking tobacco. Impression * Advanced lung cancer, with no current treatment * Dyspnea at rest and with excertion * urinary incontinence * Weakness * Needs assistance with care * Wishes to at home, Hospice eval pending Suggestions * Continue O 2 supplement and Neb Tx * promote skin integrity * promote safety * Call for Hospice Evaluation today * DNR/DNI * Discharge planing for Home hospice Palliative care will sign off at this point. Advance Care discussion 46 min
[2018-02-19] MEDS: Tiotropium 18 mcg Cap For Inhalation IH SCH (11:15)
--- NOTE | 2018-02-19 18:33 | CP.PCM.CON ---
History of Present Illness - History of Present Illness History of Present Illness: HPI: 67 year old male with PMH of asthma, emphysema, lung CA (stage 4) presents with SOB starting yesterday after running out of home oxygen before delivery of new oxygen. He is scheduled to start hospice tomorrow due to his stage 4 lung CA. Denies chest pain, cough, fever, chills. Limited history due to patient being a poor historian. PMH: asthma, emphysema, lung CA (stage 4) with planned hospice PSH: remote history of leg surgery All: NKDA SocialHx: lives with aunt, former smoker FamHx: unremarkable Exam Lungs: diminished breath sounds bilaterally, no wheezes, rales or rhonchi A&P: 1. Dyspnea - continue O2 - continue nebulizer and steroids - awaiting hospice Past Patient History - Past Medical History & Family History Past Medical History?: Yes - Past Social History Smoking Status: Heavy Smoker > 10 Cigarettes Daily - CARDIAC Hx Cardiac Disorders: No - PULMONARY Hx Asthma: Yes Hx Emphysema: Yes - NEUROLOGICAL Hx Neurological Disorder: No - HEENT Hx HEENT Problems: No - RENAL Hx Chronic Kidney Disease: No - ENDOCRINE/METABOLIC Hx Endocrine Disorders: No - HEMATOLOGICAL/ONCOLOGICAL Hx Blood Disorders: No - INTEGUMENTARY Hx Dermatological Problems: No - MUSCULOSKELETAL/RHEUMATOLOGICAL Hx Musculoskeletal Disorders: No Hx Falls: No - GASTROINTESTINAL Hx Gastrointestinal Disorders: No - GENITOURINARY/GYNECOLOGICAL Hx Genitourinary Disorders: No - PSYCHIATRIC Hx Substance Use: No - SURGICAL HISTORY Hx Surgeries: No - ANESTHESIA Hx Anesthesia: No Meds Allergies/Adverse Reactions: Allergies Allergy/AdvReac Type Severity Reaction Status Date / Time No Known Allergies Allergy Verified 01/23/18 19:16 - Medications Medications: Current Medications Acetaminophen (Tylenol 325mg Tab) 650 mg PO Q4 PRN PRN Reason: Pain, Mild (1-3) Albuterol (Ventolin Hfa 90 Mcg/Actuation (8 G)) 2 puff IH Q6 PRN PRN Reason: Shortness of Breath Albuterol/Ipratropium (Duoneb 3 Mg/0.5 Mg (3 Ml) Ud) 3 ml INH RQID [facility] Last Admin: 02/19/18 11:16 Dose: 3 ml Enoxaparin Sodium (Lovenox) 40 mg SC DAILY [facility] Last Admin: 02/19/18 09:08 Dose: 40 mg Famotidine (Pepcid) 20 mg PO BID [facility] Last Admin: 02/19/18 17:50 Dose: 20 mg Fluticasone/Vilanterol (Breo Ellipta 100-25 Mcg Inh) 1 puff INH RQ24 [facility] Last Admin: 02/19/18 08:03 Dose: Not Given Prednisone (Prednisone Tab) 20 mg PO DAILY [facility] Last Admin: 02/19/18 09:08 Dose: 20 mg Tiotropium [place] (Spiriva) 18 mcg IH DAILY [facility] Last Admin: 02/19/18 11:15 Dose: Not Given Results - Vital Signs Recent Vital Signs: Last Vital Signs Temp 97.7 F 02/19/18 15:00 Pulse 115 H 02/19/18 15:00 Resp 20 02/19/18 15:00 BP 112/78 02/19/18 15:00 Pulse Ox 97 02/19/18 15:00
--- NOTE | 2018-02-19 23:11 | CP.PCM.HP ---
Past Patient History - Past Medical History & Family History Past Medical History?: Yes - Past Social History Smoking Status: Heavy Smoker > 10 Cigarettes Daily - CARDIAC Hx Cardiac Disorders: No - PULMONARY Hx Asthma: Yes Hx Emphysema: Yes - NEUROLOGICAL Hx Neurological Disorder: No - HEENT Hx HEENT Problems: No - RENAL Hx Chronic Kidney Disease: No - ENDOCRINE/METABOLIC Hx Endocrine Disorders: No - HEMATOLOGICAL/ONCOLOGICAL Hx Blood Disorders: No - INTEGUMENTARY Hx Dermatological Problems: No - MUSCULOSKELETAL/RHEUMATOLOGICAL Hx Musculoskeletal Disorders: No Hx Falls: No - GASTROINTESTINAL Hx Gastrointestinal Disorders: No - GENITOURINARY/GYNECOLOGICAL Hx Genitourinary Disorders: No - PSYCHIATRIC Hx Substance Use: No - SURGICAL HISTORY Hx Surgeries: No - ANESTHESIA Hx Anesthesia: No Meds Allergies/Adverse Reactions: Allergies Allergy/AdvReac Type Severity Reaction Status Date / Time No Known Allergies Allergy Verified 01/23/18 19:16 Results - Vital Signs Recent Vital Signs: Last Vital Signs Temp 97.7 F 02/19/18 15:00 Pulse 115 H 02/19/18 15:00 Resp 20 02/19/18 15:00 BP 112/78 02/19/18 15:00 Pulse Ox 97 02/19/18 15:00
--- NOTE | 2018-02-20 04:36 | HP ---
CHIEF COMPLAINT: Shortness of breath. HISTORY OF PRESENT ILLNESS: This is a 67-year-old male with a history of COPD, recently diagnosed lung cancer with metastasis to the liver who was in Subacute [facility] Facility at [facility]. The patient is a candidate for hospice, and he has been seen by palliative care for hospice. He is terminally sick. He is weak. The patient ran out of oxygen. The patient's family brought him into emergency room. Earlier yesterday, I spoke to hospice and a hospice referral was made, but the patient could not stay home. The patient was brought into emergency room. The patient is very drowsy. He does not answer to any my questions. He has weakness, tiredness, fatigue, dyspnea, cough, congestion, and wheezing. No fever. No chills. Decreased appetite. PAST MEDICAL HISTORY: COPD, stage IV lung cancer. SOCIAL HISTORY: Ex-smoker, non-ETOH user. CURRENT MEDICATIONS: Unknown. PHYSICAL EXAMINATION: GENERAL: This is an elderly male, in mild respiratory distress. VITAL SIGNS: Blood pressure 110/70, pulse 115, respiratory rate 24, temperature 98. SKIN: Senile turgor. No bruises. No purpura. No petechiae. HEENT: Atraumatic and normocephalic. Negative pallor. Negative jaundice. Extraocular movements are intact. NECK: Supple. No JVD. Using accessory muscles. No lymph nodes. No thyromegaly. No carotid bruits. CHEST WALL: Bilateral symmetrical expansion. Barrel shaped chest. LUNGS: Bilateral scattered rales and bilateral rhonchi. CARDIOVASCULAR SYSTEM: PMI in the fifth intercostal space. S1 and S2 are regular. Tachycardic. ABDOMEN: Soft, nontender. Bowel sounds are positive. RECTAL: Enlarged prostate. EXTREMITIES: No clubbing, cyanosis, or edema. CENTRAL NERVOUS SYSTEM: The patient is arousable. He prefers to sleep. ASSESSMENT: 1. Terminal stage IV lung cancer. 2. Chronic obstructive pulmonary disease. PLAN: O2. Palliative care. Hospice. End-of-life. Gavin Samuels MD
[2018-02-20] MEDS: Fluticasone-Vilanterol 100/25mcg Diskus INH SCH (07:33)
[2018-02-20] MEDS: Albuterol-Ipratrop 3 mg / 0.5 (3 ml) UD INH SCH ×4 (07:55→19:25)
[2018-02-20] MEDS: Enoxaparin 40 mg Syringe SC SCH (10:55)
[2018-02-20] MEDS: Tiotropium 18 mcg Cap For Inhalation IH SCH (11:34)
--- NOTE | 2018-02-20 21:51 | CP.PCM.PN ---
Subjective - Subjective Subjective: dictated Objective - Vital Signs/Intake and Output Vital Signs (last 24 hours): Temp Pulse Resp BP Pulse Ox 98.5 F 126 H 20 115/77 96 02/20/18 16:00 02/20/18 16:00 02/20/18 16:00 02/20/18 16:00 02/20/18 16:00 Intake and Output: 02/20/18 02/21/18 18:59 06:59 Intake Total 350 Output Total 700 Balance -350 - Medications Medications: Current Medications Acetaminophen (Tylenol 325mg Tab) 650 mg PO Q4 PRN PRN Reason: Pain, Mild (1-3) Albuterol (Ventolin Hfa 90 Mcg/Actuation (8 G)) 2 puff IH Q6 PRN PRN Reason: Shortness of Breath Albuterol/Ipratropium (Duoneb 3 Mg/0.5 Mg (3 Ml) Ud) 3 ml INH RQID [facility] Last Admin: 02/20/18 19:25 Dose: 3 ml Enoxaparin Sodium (Lovenox) 40 mg SC DAILY [facility] Last Admin: 02/20/18 10:55 Dose: 40 mg Famotidine (Pepcid) 20 mg PO BID [facility] Last Admin: 02/20/18 19:00 Dose: 20 mg Fluticasone/Vilanterol (Breo Ellipta 100-25 Mcg Inh) 1 puff INH RQ24 [facility] Last Admin: 02/20/18 07:33 Dose: 1 puff Prednisone (Prednisone Tab) 20 mg PO DAILY [facility] Last Admin: 02/20/18 10:55 Dose: 20 mg Tiotropium [place] (Spiriva) 18 mcg IH DAILY [facility] Last Admin: 02/20/18 11:34 Dose: Not Given
[2018-02-21] MEDS: Fluticasone-Vilanterol 100/25mcg Diskus INH SCH (07:28)
[2018-02-21] MEDS: Albuterol-Ipratrop 3 mg / 0.5 (3 ml) UD INH SCH ×4 (07:28→19:20)
[2018-02-21] MEDS: Enoxaparin 40 mg Syringe SC SCH (10:10)
[2018-02-21] MEDS: Tiotropium 18 mcg Cap For Inhalation IH SCH (11:20)
--- NOTE | 2018-02-21 21:05 | CP.PCM.PN ---
Subjective - Subjective Subjective: dictated Objective - Vital Signs/Intake and Output Vital Signs (last 24 hours): Temp Pulse Resp BP Pulse Ox 97.2 F L 119 H 18 97/67 L 95 02/21/18 15:00 02/21/18 15:00 02/21/18 15:00 02/21/18 15:00 02/21/18 15:00 - Medications Medications: Current Medications Acetaminophen (Tylenol 325mg Tab) 650 mg PO Q4 PRN PRN Reason: Pain, Mild (1-3) Albuterol (Ventolin Hfa 90 Mcg/Actuation (8 G)) 2 puff IH Q6 PRN PRN Reason: Shortness of Breath Albuterol/Ipratropium (Duoneb 3 Mg/0.5 Mg (3 Ml) Ud) 3 ml INH RQID [facility] Last Admin: 02/21/18 19:20 Dose: 3 ml Enoxaparin Sodium (Lovenox) 40 mg SC DAILY [facility] Last Admin: 02/21/18 10:10 Dose: 40 mg Famotidine (Pepcid) 20 mg PO BID [facility] Last Admin: 02/21/18 18:22 Dose: 20 mg Fluticasone/Vilanterol (Breo Ellipta 100-25 Mcg Inh) 1 puff INH RQ24 [facility] Last Admin: 02/21/18 07:28 Dose: 1 puff Prednisone (Prednisone Tab) 20 mg PO DAILY [facility] Last Admin: 02/21/18 10:11 Dose: 20 mg Tiotropium [place] (Spiriva) 18 mcg IH DAILY [facility] Last Admin: 02/21/18 11:20 Dose: 18 mcg
--- NOTE | 2018-02-22 02:56 | PN ---
DATE: 02/21/2018 SUBJECTIVE: No changes. Blood pressure is on the lower side. PHYSICAL EXAMINATION: VITAL SIGNS: BP is 83/53, pulse 96, respiratory rate 18, and temperature 97.6. LUNGS: Decreased air entry. Positive rhonchi. CARDIOVASCULAR SYSTEM: S1 and S2 regular. ABDOMEN: Soft. ASSESSMENT: 1. Stage IV lung cancer. 2. Chronic obstructive pulmonary disease. PLAN: [id number] care. Monitor the patient. Gavin Samuels MD
--- NOTE | 2018-02-22 06:19 | HP ---
SUBJECTIVE: shortness of breath. The patient is for hospice. Awaiting he is still short of breath. He has no chest pain. No nausea or vomiting. PHYSICAL EXAMINATION: VITAL SIGNS: Blood pressure 115/77, pulse 126, respiratory rate 20, and temperature 98.5. LUNGS: Bilateral inspiratory and expiratory rales and rhonchi. CARDIOVASCULAR SYSTEM: S1 and S2 regular. ABDOMEN: Soft. ASSESSMENT: 1. Chronic obstructive pulmonary disease. 2. Metastatic lung cancer. PLAN: Hospice once arranged. Gavin Samuels MD
[2018-02-22] MEDS: Albuterol-Ipratrop 3 mg / 0.5 (3 ml) UD INH SCH ×3 (07:40→19:11)
[2018-02-22] MEDS: Fluticasone-Vilanterol 100/25mcg Diskus INH SCH (07:40)
[2018-02-22] MEDS: Enoxaparin 40 mg Syringe SC SCH (09:29)
[2018-02-22] MEDS: Tiotropium 18 mcg Cap For Inhalation IH SCH (09:36)
[2018-02-22 16:27] VITALS: RESP 20
--- NOTE | 2018-02-22 20:52 | CP.PCM.PN ---
Subjective - Subjective Subjective: dictated Objective - Vital Signs/Intake and Output Vital Signs (last 24 hours): Temp Pulse Resp BP Pulse Ox 98.1 F 106 H 20 96/64 L 96 02/22/18 15:00 02/22/18 15:00 02/22/18 15:00 02/22/18 15:00 02/22/18 15:00 Intake and Output: 02/22/18 02/23/18 18:59 06:59 Intake Total 200 Output Total 1000 Balance -800 - Medications Medications: Current Medications Acetaminophen (Tylenol 325mg Tab) 650 mg PO Q4 PRN PRN Reason: Pain, Mild (1-3) Albuterol (Ventolin Hfa 90 Mcg/Actuation (8 G)) 2 puff IH Q6 PRN PRN Reason: Shortness of Breath Albuterol/Ipratropium (Duoneb 3 Mg/0.5 Mg (3 Ml) Ud) 3 ml INH RQID [facility] Last Admin: 02/22/18 19:11 Dose: 3 ml Enoxaparin Sodium (Lovenox) 40 mg SC DAILY [facility] Last Admin: 02/22/18 09:29 Dose: 40 mg Famotidine (Pepcid) 20 mg PO BID [facility] Last Admin: 02/22/18 17:12 Dose: 20 mg Fluticasone/Vilanterol (Breo Ellipta 100-25 Mcg Inh) 1 puff INH RQ24 [facility] Last Admin: 02/22/18 07:40 Dose: 1 puff Prednisone (Prednisone Tab) 20 mg PO DAILY [facility] Last Admin: 02/22/18 09:29 Dose: 20 mg Tiotropium [place] (Spiriva) 18 mcg IH DAILY [facility] Last Admin: 02/22/18 09:36 Dose: Not Given
--- NOTE | 2018-02-23 02:19 | PN ---
DATE: 02/22/2018 SUBJECTIVE: The patient is on hospice. No fever. No chills. Decreased shortness of breath. Denies any pain at the moment. PHYSICAL EXAMINATION: VITAL SIGNS: Blood pressure 96/64, pulse 106, respiratory rate 20, and temperature 98.1. LUNGS: Decreased air entry. Positive rhonchi. CVS: S1 and S2, regular. ABDOMEN: Soft. ASSESSMENT: 1. Stage IV lung cancer. 2. Chronic obstructive pulmonary disease. PLAN: Monitor the patient. Gavin Samuels MD
[2018-02-23] MEDS: Albuterol-Ipratrop 3 mg / 0.5 (3 ml) UD INH SCH ×2 (07:25→11:45)
[2018-02-23] MEDS: Fluticasone-Vilanterol 100/25mcg Diskus INH SCH (07:25)
[2018-02-23 08:15] VITALS: BP 106/75; PULSE 106; TEMP 98.1; O2SAT 94
[2018-02-23] MEDS: Tiotropium 18 mcg Cap For Inhalation IH SCH (09:21)
[2018-02-23] MEDS: Enoxaparin 40 mg Syringe SC SCH (10:37)
--- NOTE | 2018-02-23 12:54 | CP.PCM.PN ---
Subjective - Date & Time of Evaluation Date of Evaluation: 02/23/18 Time of Evaluation: 12:54 Objective - Vital Signs/Intake and Output Vital Signs (last 24 hours): Temp Pulse Resp BP Pulse Ox 98.1 F 106 H 20 106/75 94 L 02/23/18 07:00 02/23/18 09:22 02/23/18 07:00 02/23/18 07:00 02/23/18 07:00 Intake and Output: 02/23/18 02/23/18 06:59 18:59 Intake Total 320 240 Output Total 750 500 Balance -430 -260 - Medications Medications: Current Medications Acetaminophen (Tylenol 325mg Tab) 650 mg PO Q4 PRN PRN Reason: Pain, Mild (1-3) Albuterol (Ventolin Hfa 90 Mcg/Actuation (8 G)) 2 puff IH Q6 PRN PRN Reason: Shortness of Breath Albuterol/Ipratropium (Duoneb 3 Mg/0.5 Mg (3 Ml) Ud) 3 ml INH RQID [facility] Last Admin: 02/23/18 11:45 Dose: 3 ml Enoxaparin Sodium (Lovenox) 40 mg SC DAILY [facility] Last Admin: 02/23/18 10:37 Dose: 40 mg Famotidine (Pepcid) 20 mg PO BID [facility] Last Admin: 02/23/18 10:37 Dose: 20 mg Fluticasone/Vilanterol (Breo Ellipta 100-25 Mcg Inh) 1 puff INH RQ24 [facility] Last Admin: 02/23/18 07:25 Dose: 1 puff Prednisone (Prednisone Tab) 20 mg PO DAILY [facility] Last Admin: 02/23/18 10:37 Dose: 20 mg Tiotropium [place] (Spiriva) 18 mcg IH DAILY [facility] Last Admin: 02/23/18 09:21 Dose: Not Given
== END 2018-02-23 16:36 | disposition hospice, home (50) | DRG 181 ==
LOC: C.6T 23:09 → OBSVTOIN 02-20 17:14
PROVIDERS: ADMIT Internal Medicine; ATTEND Internal Medicine
DX: C34.11 Malignant neoplasm of upper lobe, right bronchus or lung (principal); C78.7 Secondary malignant neoplasm of liver and intrahepatic bile duct; Z51.5 Encounter for palliative care; Z66 Do not resuscitate; R06.03 Acute respiratory distress; J44.9 Chronic obstructive pulmonary disease, unspecified; R32 Unspecified urinary incontinence; Z99.81 Dependence on supplemental oxygen; Z87.891 Personal history of nicotine dependence